=== PATIENT | female | born 1965 | race Caucasian/White ===

== ENCOUNTER 2017-10-25 10:47 | Day surgery (SDC) | payer BC, OTHER ==
[2017-10-20 10:51] LABS: HEMATOCRIT 36.3 % (36.0-47.0); MEAN CORPUSCULAR HEMOGLOBIN 32.1 pg (27.0-33.4); MEAN CORPUSCULAR HGB CONC 35.9 g/dL (32.0-36.0); MEAN CORPUSCULAR VOLUME 89 fl (80-97); PLATELET COUNT 197 10^3/uL (150-450); RED BLOOD COUNT 4.06 10^6/uL (3.72-5.28); RED CELL DISTRIBUTION WIDTH 12.9 % (11.5-14.0); WHITE BLOOD COUNT 8.7 10^3/uL (4.0-10.5)
[2017-10-20 11:24] LABS: ANION GAP 13 (5-19); BLOOD UREA NITROGEN 22 mg/dL (7-20); CALCIUM 9.3 mg/dL (8.4-10.2); CARBON DIOXIDE 25 mmol/L (22-30); CHLORIDE 105 mmol/L (98-107); GLUCOSE 96 mg/dL (75-110); POTASSIUM 4.4 mmol/L (3.6-5.0); SODIUM 142.7 mmol/L (137-145)
--- NOTE | 2017-10-20 14:34 | EKG REPORT ---
SEVERITY:- ABNORMAL ECG - SINUS RHYTHM LEFT VENTRICULAR HYPERTROPHY : Confirmed by: Vinicius Mccollum MD 20-Oct-2017 14:34:06
[~2017-10-25 10:47] MED LIST: CEFAZOLIN 1 GM/D5W RTU 1 GM/50 ML RTUPB IV PRN; GLYCOPYRROLATE INJ 0.4 MG/2 ML VIAL ONE; LACTATED RINGERS 1000 ML IV PRN; LIDOCAINE 0.5% INJ-PF (5 MG/ML) 50 ML SDV SUBCUT PRN; LIDOCAINE 2% INJ-PF (20 MG/ML) 2 ML AMPUL ONE; NEOSTIGMINE METHYLSULFATE 10 MG/10 ML VIAL ONE; ROCURONIUM BROMIDE INJ 50 MG/5 ML VIAL IV ONE; SUCCINYLCHOLINE CHLORIDE INJ 200 MG/10 ML VIAL ONE
[2017-10-25] MEDS ORDERED: BUPIVACAINE HCL 0.25 % INJ/PF (2.5 MG/1 ML) 30 ML VIAL ONE (12:28)
[2017-10-25] MEDS ORDERED: FAMOTIDINE INJ/PF 20 MG/2 ML SDV IV ONE (13:04)
[2017-10-25] MEDS ORDERED: SCOPOLAMINE HYDROBROMIDE 1.5 MG PATCH.TD72 ONE (13:04)
[2017-10-25] MEDS ORDERED: MIDAZOLAM 2 MG/2 ML INJ ONE ×2 (13:23→13:40)
[2017-10-25] MEDS ORDERED: FENTANYL CITRATE INJ/PF 100 MCG/2 ML AMPUL ONE (13:40)
[2017-10-25] MEDS ORDERED: PROPOFOL INJ 200 MG/20 ML VIAL IV ONE (13:40)
[2017-10-25] MEDS ORDERED: MEPERIDINE HCL/PF INJ 25 MG/1 ML DISP.SYRIN IV PRN (14:12)
[2017-10-25] MEDS ORDERED: FENTANYL CITRATE INJ/PF 100 MCG/2 ML AMPUL IV PRN ×3 (14:12)
[2017-10-25] MEDS ORDERED: DIPHENHYDRAMINE HCL 50 MG/ML VIAL IV PRN (14:12)
[2017-10-25] MEDS ORDERED: PROMETHAZINE HCL INJ 25 MG/1 ML VIAL IV PRN ×2 (14:12)
[2017-10-25] MEDS ORDERED: OXYCODONE-ACETAMINOPHEN 5-325 MG TABLET PO PRN ×3 (14:12→15:33)
--- NOTE | 2017-10-25 15:24 | Operative Report ---
Operative Report DATE OF SURGERY: 10/25/17 PREOPERATIVE DIAGNOSIS: Umbilical hernia, with incarceration POSTOPERATIVE DIAGNOSIS: Same with incarcerated omentum OPERATION: Laparoscopic repair of umbilical hernia with primary closure and reinforcement with Covidien 9 cm PArietex mesh in the intraperitoneal position SURGEON: CR PARKS SIMULATION DEVELOPER: EDOUARD EAST ANESTHESIA: GA TISSUE REMOVED OR ALTERED: None COMPLICATIONS: None ESTIMATED BLOOD LOSS: Scant INTRAOPERATIVE FINDINGS: See below PROCEDURE: She was taken to the preop holding area the main operating room where general anesthesia was induced. Abdomen was exposed, prepped and draped in sterile fashion ; instrumentation was set up for laparoscopic umbilical herniorrhaphy Surgical plan surgical timeout were conducted. Markings were made on the skin for 3 port laparoscopic hernia repair. Skin was anesthetized with quarter percent Marcaine. Stab wound was made in the left upper quadrant and a Veress needle inserted the peritoneal cavity. Pneumoperitoneum was established. The Veress needle was removed, 5 mm port was inserted in the peritoneal cavity and a 5 mm flexible viewing scope was inserted. There was no evidence of visceral or vascular injury. Under direct visualization 2 additional ports were placed one in the left lower quadrant and a another in the right mid field position. Findings were significant for an extensive volume of omentum incarcerated into the small umbilical hernia defect with a mushroom type configuration, dating the , incarcerated tissue. Hook cautery was used to release the bands around the opening of the fascial defect, and using a combination of blunt, traction, extracorporeal manipulation, and LigaSure, all of the omentum incarcerated in the hernia was reduced. Minimal bleeding from elements of omentum cauterized and handled with LigaSure. The hernia sac was left in situ. Affected the cavity and there was no mechanical bleeding. We now closed the fascial defect transversely with 2 #1 [id number] PDS sutures using the disposable suture passer. We now reinforced the closure using a 9 cm Covidien polypropylene mesh. It was brought onto the field after checking expiration date. Sutures were placed of 0 PDS at the 12, 6, 9 and 3: 00 positions. The mesh was moistened, rolled, brought through the anterior abdominal wall. It was unrolled and brought up to the anterior abdominal wall using the disposable suture passers and all stitches secured with knots in satisfactory position. We then brought on a sure tack stapler and secured to the mass at the intervening spaces with approximately 18 evelia. Conclusion photographs were taken. We checked the underlying omentum and it was in good shape and no mechanical bleeding At this point felt the operation was complete. Sponge and needle counts are correct. All ports removed under direct visualization, pneumoperitoneum evacuated, wounds closed with 3-0 Vicryl benzoin and Steri-Strips. Patient tolerated the procedure well, extubated, taken recovery in stable condition. The physician assistant reading teacher, Ms. Cruz, provided assistance during this case by: Assisting and port insertion, retracting tissue, instillation of local anesthesia and closure of skin incisions.
--- NOTE | 2017-10-25 15:29 | Discharge Summary ---
Discharge Summary (SDC) - Discharge Final Diagnosis: Umbilical hernia Date of Surgery: 10/25/17 Discharge Date: 10/25/17 Condition: Stable Treatment or Instructions: [facility] [address] [place] [id number] Discharge Instructions: Laparoscopic Surgery 1. General Information: a. DO NOT DRIVE a car or operate dangerous machinery for 3-4 days or while taking narcotic pain pills. b. DO NOT consume alcohol, tranquilizers, sleeping medications or any non- prescribed medications for 24 hours unless approved by your doctor or as long as taking narcotic prescription medications. c. DO NOT make important decisions or sign any important papers for the first 24 hours after surgery. d. When discharged home the same day of surgery have a responsible person with you for the first night. 2. Activity Restrictions: 8 weeks. a. NO heavy lifting, straining abdominal muscles, bending over a lot, yard work, house work, or sports for [address] for 3-4 8. c. It is fine to go for walks, up and down steps, ride in a car. d. Elevate your head when sleeping/resting. 3. Treatment: a. You may shower 24 hours after surgery, no baths or swimming for 2 weeks. Remove band-aids or dressings before shower but leave paper strips (steri-strips ) on the skin to fall off on their own. If still on at postoperative visit they will be removed then. b. Drainage of fluid or blood is not unusual from an incision. If occurs, you can clean with peroxide and cotton ball daily and cover with dry gauze until the wound seals. c. If a lot of bleeding occurs, you can hold pressure with a gauze or cloth over the site for 10 minutes and it will usually stop. If bleeding continues you will need to call for possible evaluation in office or emergency room. 4. Medications: a. ___Toradol_ may be taken for pain as needed, one every 6 hours. b. You should resume all normal medications unless a change is specified by your doctors. c. Antibiotic(s) if needed ( NONE) 5. Diet: Normal diet 6. The following may occur after laparoscopic surgery: a. Shoulder or upper back ache from retained gas that should resolve in 1-2 days b. Soreness and bruising at incision sites will resolve with time. c. Scrotal swelling (labia in women) and bruising is often seen after hernia surgery. d. Sore throat e. Fatigue may last days to weeks. f. Difficulty urinating may occur and may need to come into emergency room for urinary catheter placement. 7. Notify Physician If: a. Worsening or pain not improved with pain medication b. Persistent nausea and vomiting c. Fever above 101 d. Persistent bleeding or swelling at operative site e. Unable to urinate and uncomfortable bladder 6-8 hours after surgery 8..Follow Up Care: a. Schedule a follow up appointment with your doctor for 2 weeks. In the event of any postoperative problems or questions or you may call the office during business hours or the On-Call physician evenings and weekends at [facility]. [facility] I understand the instructions for my postoperative care as described above and a copy has been given to me. Patient/Significant Other Witness Date Prescriptions: Ketorolac Tromethamine [Toradol 10 mg Tablet] 10 mg PO Q6HP PRN #20 tablet PRN Reason: Referrals: CAIT JOHNSTON PA-C [Primary Care Provider] - Discharge Diet: As Tolerated Discharge Activity: No Lifting Over 10 Pounds, Walk Frequently Report the Following to Your Physician Immediately: Nausea, Vomiting, Fever over 101 Degrees, Redness, Drainage-Foul Smelling
[2017-10-25] MEDS ORDERED: PROMETHAZINE HCL INJ 25 MG/1 ML VIAL ONE (15:53)
[2017-10-25] MEDS ORDERED: METOCLOPRAMIDE HCL INJ/PF 10 MG/2 ML SDV ONE (15:56)
[2017-10-25] MEDS ORDERED: ACETAMINOPHEN 100 ML IV ONE (15:57)
[2017-10-25] MEDS ORDERED: KETOROLAC TROMETHAMINE INJ/PF 30 MG/1 ML SDV ONE (15:58)
[2017-10-25 19:45] VITALS: BP 143/63
== END 2017-10-25 19:40 | disposition home or self-care (01) ==
LOC: OROUT 10:47
PROVIDERS: ATTEND Surgery
PROC: 0WUF4JZ Supplement Abdominal Wall with Synthetic Substitute, Percutaneous Endoscopic Approach (ICD-10-PCS; principal; 2017-10-25 13:00)
DX: K42.0 Umbilical hernia with obstruction, without gangrene (principal); E78.00 Pure hypercholesterolemia, unspecified; E04.1 Nontoxic single thyroid nodule; D57.3 Sickle-cell trait; R01.1 Cardiac murmur, unspecified; Z88.8 Allergy status to other drugs, medicaments and biological substances; Z87.891 Personal history of nicotine dependence; Z79.82 Long term (current) use of aspirin; Z79.899 Other long term (current) drug therapy
CPT/HCPCS: 36415; 750; 80048; 81025; 82962; 85027; 93005; 93010; C1781; J0131; J0330; J0690; J1885; J2250; J2550; J2704; J2765; J3010; J3490; S0028

== ENCOUNTER 2018-07-06 09:20 | Day surgery (SDC) | payer OTHER ==
[~2018-07-06 09:20] MED LIST changes: -CEFAZOLIN 1 GM/D5W RTU 1 GM/50 ML RTUPB IV PRN; -GLYCOPYRROLATE INJ 0.4 MG/2 ML VIAL ONE; -LACTATED RINGERS 1000 ML IV PRN; -LIDOCAINE 0.5% INJ-PF (5 MG/ML) 50 ML SDV SUBCUT PRN; -LIDOCAINE 2% INJ-PF (20 MG/ML) 2 ML AMPUL ONE; -NEOSTIGMINE METHYLSULFATE 10 MG/10 ML VIAL ONE; +PROPOFOL INJ 200 MG/20 ML VIAL IV ONE; -ROCURONIUM BROMIDE INJ 50 MG/5 ML VIAL IV ONE; -SUCCINYLCHOLINE CHLORIDE INJ 200 MG/10 ML VIAL ONE
[2018-07-06] MEDS ORDERED: FENTANYL CITRATE INJ/PF 100 MCG/2 ML AMPUL IV PRN ×3 (11:54)
[2018-07-06] MEDS ORDERED: MEPERIDINE HCL/PF INJ 25 MG/1 ML DISP.SYRIN IV PRN (11:54)
[2018-07-06] MEDS ORDERED: DIPHENHYDRAMINE HCL 50 MG/ML VIAL IV PRN (11:54)
[2018-07-06] MEDS ORDERED: OXYCODONE-ACETAMINOPHEN 5-325 MG TABLET PO PRN ×2 (11:54)
[2018-07-06] MEDS ORDERED: PROMETHAZINE HCL INJ 25 MG/1 ML VIAL IV PRN ×2 (11:54)
--- NOTE | 2018-07-06 12:23 | Operative Report ---
Operative Report DATE OF SURGERY: 07/06/18 Operative Report: The risks, benefits and alternatives of the procedure including the risks of bleeding, perforation requiring surgery are explained to the patient in detail and informed consent is obtained. Patient is taken back to the operating room and placed in the left, lateral decubital position. Timeout was called. Propofol medication is administered. Rectal examination is done which did not reveal any masses, tears or fissures. An Olympus videoscope was introduced into the patient's rectum. The scope was then carefully advanced all the way to the cecum. The cecum was identified by the usual anatomical landmarks including the ileocecal valve as well as appendiceal office. Photodocumentation is obtained. The scope was then sequentially pulled back via the various segments of the colon including the ascending colon, hepatic flexure, transverse colon, splenic flexure, descending colon and finally to the rectosigmoid portions of the colon. Retroflexion maneuver is performed. PREOPERATIVE DIAGNOSIS: Colorectal cancer screening POSTOPERATIVE DIAGNOSIS: Large polyp/ulcerated mass noted at approximately 20 cm. Status post biopsy. Submucosal injection of Kalyn ink is performed. Dr. Singh was notified. Surgical consultation is needed for removal. OPERATION: Colonoscopy with submucosal injection. Colonoscopy with biopsy SURGEON: JAIRO MILTON ANESTHESIA: LMAC TISSUE REMOVED OR ALTERED: As noted above. COMPLICATIONS: None. ESTIMATED BLOOD LOSS: None. INTRAOPERATIVE FINDINGS: As noted above. PROCEDURE: Patient tolerated the procedure well. No immediate postprocedure complications are noted. Patient discharged in good condition. Discharge date 07/06/2018. Discharge diet: Regular. Discharge activity: Regular. We will wait on pathology. Surgical consultation to be made to [facility]. Patient is instructed to call the office or proceed to the emergency room should there be any further questions.
[2018-07-06 15:00] VITALS: BP 156/67
== END 2018-07-06 13:15 | disposition home or self-care (01) ==
LOC: OROUT 09:20
PROVIDERS: ATTEND Internal Medicine Gastroenterology
DX: Z12.11 Encounter for screening for malignant neoplasm of colon (principal); D12.5 Benign neoplasm of sigmoid colon; E78.00 Pure hypercholesterolemia, unspecified; E78.1 Pure hyperglyceridemia; E04.1 Nontoxic single thyroid nodule; Z79.899 Other long term (current) drug therapy; Z88.8 Allergy status to other drugs, medicaments and biological substances; Z80.8 Family history of malignant neoplasm of other organs or systems
CPT/HCPCS: 45380; 45381; 88305 ×2; J2704; 811

== ENCOUNTER 2019-01-03 05:31 | Inpatient (IN) | payer OTHER ==
--- NOTE | 2018-12-28 10:19 | RADIOLOGY REPORT (SQ) ---
EXAM DESCRIPTION: CHEST PA/LATERAL COMPLETED DATE/TIME: 12/28/2018 9:37 am REASON FOR STUDY: PRE-OP COMPARISON: None. EXAM PARAMETERS: NUMBER OF VIEWS: two views TECHNIQUE: Digital Frontal and Lateral radiographic views of the chest acquired. RADIATION DOSE: NA LIMITATIONS: none FINDINGS: LUNGS AND PLEURA: Minimal lingular scarring or atelectasis. Lungs are otherwise free of f ocal infiltrates. No pleural effusion or pneumothorax MEDIASTINUM AND HILAR STRUCTURES: No masses or contour abnormalities. HEART AND VASCULAR STRUCTURES: Heart normal size. No evidence for failure. BONES: No acute findings. HARDWARE: None in the chest. OTHER: No other significant finding. IMPRESSION: Minimal lingular scarring or atelectasis TECHNICAL DOCUMENTATION: JOB ID: [id number] [employer]- All Rights Reserved Reading location - IP/workstation name: [email or web address]
[2018-12-28 10:36] LABS: HEMATOCRIT 37.4 % (36.0-47.0); HEMOGLOBIN 13.2 g/dL (12.0-15.5); MEAN CORPUSCULAR HEMOGLOBIN 31.9 pg (27.0-33.4); MEAN CORPUSCULAR HGB CONC 35.2 g/dL (32.0-36.0); MEAN CORPUSCULAR VOLUME 91 fl (80-97); PLATELET COUNT 209 10^3/uL (150-450); RED BLOOD COUNT 4.13 10^6/uL (3.72-5.28); RED CELL DISTRIBUTION WIDTH 13.7 % (11.5-14.0); WHITE BLOOD COUNT 7.8 10^3/uL (4.0-10.5)
[2018-12-28 10:58] LABS: ANION GAP 10 (5-19); BLOOD UREA NITROGEN 20 mg/dL (7-20); CALCIUM 9.7 mg/dL (8.4-10.2); CARBON DIOXIDE 28 mmol/L (22-30); CHLORIDE 104 mmol/L (98-107); GLUCOSE 102 mg/dL (75-110); POTASSIUM 4.7 mmol/L (3.6-5.0); SODIUM 142.3 mmol/L (137-145)
--- NOTE | 2018-12-28 22:37 | EKG REPORT ---
SEVERITY:- ABNORMAL ECG - SINUS RHYTHM LEFT VENTRICULAR HYPERTROPHY : Confirmed by: Lucero Graves MD 28-Dec-2018 22:36:53
[~2019-01-03 05:31] MED LIST changes: +CEFOXITIN SODIUM 2 GM in DEXTROSE 5%-WATER 100 ML IV PRN; +IBUPROFEN 800 MG in NORMAL SALINE 250 ML IV PRN; +LACTATED RINGERS 1000 ML IV PRN; +LIDOCAINE 0.5% INJ-PF (5 MG/ML) 50 ML SDV SUBCUT PRN; -PROPOFOL INJ 200 MG/20 ML VIAL IV ONE; +SCOPOLAMINE HYDROBROMIDE 1.5 MG PATCH.TD72 TD PRN
[2019-01-03] MEDS ORDERED: SCOPOLAMINE HYDROBROMIDE 1.5 MG PATCH.TD72 ONE (05:38)
[2019-01-03] MEDS ORDERED: FAMOTIDINE INJ/PF 20 MG/2 ML SDV IV ONE ×2 (06:20→06:45)
[2019-01-03] MEDS ORDERED: HYDROMORPHONE HCL INJ/PF 2 MG/ML AMPULE ONE (07:05)
[2019-01-03] MEDS ORDERED: FENTANYL CITRATE INJ/PF 100 MCG/2 ML AMPUL ONE (07:05)
[2019-01-03] MEDS ORDERED: MIDAZOLAM 2 MG/2 ML INJ ONE (07:06)
[2019-01-03] MEDS ORDERED: PROPOFOL INJ 200 MG/20 ML VIAL IV ONE (07:06)
[2019-01-03] MEDS ORDERED: ACETAMINOPHEN 1,000 MG/100 ML RTUPB IV ONE (07:06)
[2019-01-03] MEDS ORDERED: PROMETHAZINE HCL INJ 25 MG/1 ML VIAL ONE (07:15)
[2019-01-03] MEDS ORDERED: BUPIVACAINE HCL 0.25 % INJ/PF (2.5 MG/1 ML) 30 ML VIAL ONE (08:06)
[2019-01-03] MEDS ORDERED: MORPHINE SULFATE 10 MG/ML INJ IV PRN (08:32)
[2019-01-03] MEDS ORDERED: FENTANYL CITRATE INJ/PF 100 MCG/2 ML AMPUL IV PRN ×3 (08:32)
[2019-01-03] MEDS ORDERED: MEPERIDINE HCL/PF INJ 25 MG/1 ML DISP.SYRIN IV PRN (08:32)
[2019-01-03] MEDS ORDERED: DIPHENHYDRAMINE HCL 50 MG/ML VIAL IV PRN (08:32)
[2019-01-03] MEDS ORDERED: PROMETHAZINE HCL INJ 25 MG/1 ML VIAL IV PRN (08:32)
[2019-01-03] MEDS ORDERED: EPHEDRINE SULFATE INJ 50 MG/1 ML AMPULE ONE (14:50)
[2019-01-03] MEDS: HYDROMORPHONE HCL INJ/PF 2 MG/ML AMPULE IV PRN ×2 (16:14→20:49)
[2019-01-03] MEDS: CEFOXITIN SODIUM 2 GM in DEXTROSE 5%-WATER 100 ML IV SCH (16:16)
[2019-01-03] MEDS ORDERED: DEXAMETHASONE SOD PHOSPHATE INJ 4 MG/1 ML VIAL ONE (19:18)
[2019-01-03] MEDS ORDERED: GLYCOPYRROLATE 1 MG/5 ML SYRINGE ONE (19:18)
[2019-01-03] MEDS ORDERED: NEOSTIGMINE METHYLSULFATE 10 MG/10 ML VIAL ONE (19:18)
[2019-01-03] MEDS ORDERED: SUCCINYLCHOLINE CHLORIDE INJ 200 MG/10 ML VIAL ONE (19:18)
[2019-01-03] MEDS ORDERED: ONDANSETRON HCL INJ/PF 4 MG/2 ML SDV ONE (19:18)
[2019-01-03] MEDS ORDERED: ROCURONIUM BROMIDE INJ 50 MG/5 ML VIAL IV ONE (19:18)
[2019-01-03] MEDS: ONDANSETRON HCL INJ/PF 4 MG/2 ML SDV IV PRN (20:01)
[2019-01-03] MEDS: FAMOTIDINE INJ/PF 20 MG/2 ML SDV IV SCH (22:03)
[2019-01-03] MEDS: KETOROLAC TROMETHAMINE INJ/PF 30 MG/1 ML SDV IV SCH (22:03)
[2019-01-04] MEDS: CEFOXITIN SODIUM 2 GM in DEXTROSE 5%-WATER 100 ML IV SCH (00:27)
[2019-01-04] MEDS: HYDROCODONE/ACETAMINOPHEN 10-325 MG TABLET PO PRN ×2 (00:27→18:09)
[2019-01-04] MEDS: ONDANSETRON HCL INJ/PF 4 MG/2 ML SDV IV PRN ×3 (00:27→19:17)
[2019-01-04] MEDS: HYDROMORPHONE HCL INJ/PF 2 MG/ML AMPULE IV PRN ×5 (02:13→19:58)
[2019-01-04 04:42] LABS: ABSOLUTE LYMPHOCYTES (AUTO) 1.2 10^3/uL (0.5-4.7); ABSOLUTE MONOCYTES (AUTO) 1.2 10^3/uL (0.1-1.4); BASOPHILS % (AUTO) 0.1 % (0-2); HEMATOCRIT 33.4 % (36.0-47.0); HEMOGLOBIN 11.8 g/dL (12.0-15.5); LYMPHOCYTES % (AUTO) 7.8 % (13-45); MEAN CORPUSCULAR HEMOGLOBIN 31.2 pg (27.0-33.4); MEAN CORPUSCULAR HGB CONC 35.2 g/dL (32.0-36.0); MEAN CORPUSCULAR VOLUME 89 fl (80-97); MONOCYTES % (AUTO) 7.6 % (3-13); PLATELET COUNT 226 10^3/uL (150-450); RED BLOOD COUNT 3.78 10^6/uL (3.72-5.28); RED CELL DISTRIBUTION WIDTH 13.6 % (11.5-14.0); SEGMENTED NEUTROPHILS % (AUTO) 84.5 % (42-78); TOTAL CELLS COUNTED % (AUTO) 100 %; WHITE BLOOD COUNT 15.3 10^3/uL (4.0-10.5)
[2019-01-04 05:03] LABS: ALANINE AMINOTRANSFERASE 34 U/L (9-52); ALBUMIN 3.3 g/dL (3.5-5.0); ALKALINE PHOSPHATASE 45 U/L (38-126); ANION GAP 9 (5-19); ASPARTATE AMINO TRANSFERASE 22 U/L (14-36); BILIRUBIN,DIRECT 0.2 mg/dL (0.0-0.4); BILIRUBIN,TOTAL 0.6 mg/dL (0.2-1.3); BLOOD UREA NITROGEN 15 mg/dL (7-20); CALCIUM 8.7 mg/dL (8.4-10.2); CARBON DIOXIDE 23 mmol/L (22-30); CHLORIDE 106 mmol/L (98-107); GLUCOSE 144 mg/dL (75-110); POTASSIUM 3.9 mmol/L (3.6-5.0); SODIUM 138.4 mmol/L (137-145); TOTAL PROTEIN 5.5 g/dL (6.3-8.2)
[2019-01-04] MEDS: PROMETHAZINE HCL INJ 25 MG/1 ML VIAL IV PRN ×2 (06:26→15:00)
[2019-01-04] MEDS: KETOROLAC TROMETHAMINE INJ/PF 30 MG/1 ML SDV IV SCH ×3 (06:27→23:19)
[2019-01-04] MEDS: RINGERS SOLUTION,LACTATED 1,000 ML IV PRN ×2 (08:01→18:09)
[2019-01-04] MEDS: ENOXAPARIN SODIUM INJ 40 MG/0.4 ML DISP.SYRIN SUBCUT SCH (09:27)
[2019-01-04] MEDS: FAMOTIDINE INJ/PF 20 MG/2 ML SDV IV SCH ×2 (09:27→23:20)
--- NOTE | 2019-01-04 16:39 | PDOC PROGRESS REPORT ---
Subjective Progress Note for:: 01/04/19 Reason For Visit: LARGE ADENOMA,SUSPICIOUS FOR COLON CANCER, Physical Exam Vital Signs: Temp Pulse Resp BP Pulse Ox 99.1 F 85 19 137/43 H 96 01/04/19 15:55 01/04/19 15:55 01/04/19 15:55 01/04/19 15:55 01/04/19 15:55 Intake & Output 01/03/19 01/04/19 01/05/19 06:59 06:59 06:59 Intake Total 0 5250 900 Output Total 3520 870 Balance 0 1730 30 Weight 98.1 kg Results Laboratory Results: 01/04/19 04:24 01/04/19 04:24 01/04/19 01/04/19 04:24 04:24 WBC 15.3 H RBC 3.78 Hgb 11.8 L Hct 33.4 L MCV 89 MCH 31.2 MCHC 35.2 RDW 13.6 Plt Count 226 Seg Neutrophils % 84.5 H Lymphocytes % 7.8 L Monocytes % 7.6 Eosinophils % 0.0 Basophils % 0.1 Absolute Neutrophils 13.0 H Absolute Lymphocytes 1.2 Absolute Monocytes 1.2 Absolute Eosinophils 0.0 Absolute Basophils 0.0 Sodium 138.4 Potassium 3.9 Chloride 106 Carbon Dioxide 23 Anion Gap 9 BUN 15 Creatinine 0.75 Est GFR ( Amer) > 60 Est GFR (Non-Af Amer) > 60 Glucose 144 H Calcium 8.7 Total Bilirubin 0.6 AST 22 ALT 34 Alkaline Phosphatase 45 Total Protein 5.5 L Albumin 3.3 L Impressions: Chest X-Ray 12/28/18 09:32 IMPRESSION: Minimal lingular scarring or atelectasis Assessment & Plan - Diagnosis (1) Colon neoplasm Is this a current diagnosis for this admission?: Yes - Plan Summary Plan Summary: This is a 53-year-old female status post laparoscopic left hemicolectomy with colorectal anastomosis and diverting ileostomy. The patient is doing well today. Her pain is controlled. She does report some nausea. Her left lower quadrant ileostomy is pink, but not productive. She denies fevers or chills. Aggressive pulmonary toilet. Continue Paz for today, for strict urine output. Out of bed today. Awaiting return of bowel function. Serosanguineous drainage from GIOVANY drain.
[2019-01-05] MEDS: RINGERS SOLUTION,LACTATED 1,000 ML IV PRN ×2 (04:15→14:41)
[2019-01-05 05:02] LABS: ABSOLUTE MONOCYTES (AUTO) 1.3 10^3/uL (0.1-1.4); ABSOLUTE NEUT (AUTO) 9.4 10^3/uL (1.7-8.2); BASOPHILS % (AUTO) 0.3 % (0-2); EOSINOPHILS % (AUTO) 0.2 % (0-6); HEMATOCRIT 25.7 % (36.0-47.0); LYMPHOCYTES % (AUTO) 21.8 % (13-45); MEAN CORPUSCULAR HEMOGLOBIN 31.6 pg (27.0-33.4); MEAN CORPUSCULAR HGB CONC 34.8 g/dL (32.0-36.0); MEAN CORPUSCULAR VOLUME 91 fl (80-97); MONOCYTES % (AUTO) 9.3 % (3-13); PLATELET COUNT 237 10^3/uL (150-450); RED BLOOD COUNT 2.83 10^6/uL (3.72-5.28); RED CELL DISTRIBUTION WIDTH 13.4 % (11.5-14.0); SEGMENTED NEUTROPHILS % (AUTO) 68.4 % (42-78); TOTAL CELLS COUNTED % (AUTO) 100 %; WHITE BLOOD COUNT 13.8 10^3/uL (4.0-10.5)
[2019-01-05 05:05] LABS: HEMOGLOBIN 8.9 g/dL (12.0-15.5)
[2019-01-05 05:17] LABS: ALANINE AMINOTRANSFERASE 28 U/L (9-52); ALBUMIN 2.9 g/dL (3.5-5.0); ALKALINE PHOSPHATASE 39 U/L (38-126); ANION GAP 7 (5-19); ASPARTATE AMINO TRANSFERASE 22 U/L (14-36); BILIRUBIN,DIRECT 0.2 mg/dL (0.0-0.4); BILIRUBIN,TOTAL 0.5 mg/dL (0.2-1.3); BLOOD UREA NITROGEN 24 mg/dL (7-20); CALCIUM 8.6 mg/dL (8.4-10.2); CARBON DIOXIDE 26 mmol/L (22-30); CHLORIDE 105 mmol/L (98-107); GLUCOSE 117 mg/dL (75-110); POTASSIUM 4.2 mmol/L (3.6-5.0); SODIUM 138.4 mmol/L (137-145); TOTAL PROTEIN 5.2 g/dL (6.3-8.2)
[2019-01-05] MEDS: KETOROLAC TROMETHAMINE INJ/PF 30 MG/1 ML SDV IV SCH ×3 (05:38→21:29)
[2019-01-05] MEDS: FAMOTIDINE INJ/PF 20 MG/2 ML SDV IV SCH ×2 (09:54→21:29)
[2019-01-05] MEDS: ENOXAPARIN SODIUM INJ 40 MG/0.4 ML DISP.SYRIN SUBCUT SCH (09:55)
[2019-01-05] MEDS: HYDROCODONE/ACETAMINOPHEN 10-325 MG TABLET PO PRN (09:59)
[2019-01-05] MEDS: HYDROMORPHONE HCL INJ/PF 2 MG/ML AMPULE IV PRN (11:17)
--- NOTE | 2019-01-05 12:22 | PDOC PROGRESS REPORT ---
Subjective Progress Note for:: 01/05/19 Reason For Visit: LARGE ADENOMA,SUSPICIOUS FOR COLON CANCER, Physical Exam Vital Signs: Temp Pulse Resp BP Pulse Ox 98.3 F 109 H 19 135/47 H 99 01/05/19 11:17 01/05/19 11:17 01/05/19 11:17 01/05/19 11:17 01/05/19 11:17 Intake & Output 01/04/19 01/05/19 01/06/19 06:59 06:59 06:59 Intake Total 5250 3300 Output Total 3520 1390 Balance 1730 1910 Weight 98.1 kg 97.9 kg Results Laboratory Results: 01/05/19 03:54 01/05/19 03:54 01/05/19 01/05/19 03:54 03:54 WBC 13.8 H RBC 2.83 L Hgb 8.9 L D Hct 25.7 L MCV 91 MCH 31.6 MCHC 34.8 RDW 13.4 Plt Count 237 Seg Neutrophils % 68.4 Lymphocytes % 21.8 Monocytes % 9.3 Eosinophils % 0.2 Basophils % 0.3 Absolute Neutrophils 9.4 H Absolute Lymphocytes 3.0 Absolute Monocytes 1.3 Absolute Eosinophils 0.0 Absolute Basophils 0.0 Sodium 138.4 Potassium 4.2 Chloride 105 Carbon Dioxide 26 Anion Gap 7 BUN 24 H Creatinine 1.06 Est GFR ( Amer) > 60 Est GFR (Non-Af Amer) 55 L Glucose 117 H Calcium 8.6 Total Bilirubin 0.5 AST 22 ALT 28 Alkaline Phosphatase 39 Total Protein 5.2 L Albumin 2.9 L Impressions: Chest X-Ray 12/28/18 09:32 IMPRESSION: Minimal lingular scarring or atelectasis Assessment & Plan - Diagnosis (1) Colon neoplasm Is this a current diagnosis for this admission?: Yes - Plan Summary Plan Summary: This is a 53-year-old female status post laparoscopic left hemicolectomy with colorectal anastomosis and diverting ileostomy. The patient is doing well today. Her pain is controlled. She does report some nausea. Her left lower quadrant ileostomy is pink, and productiveof a small amount of bilious output. She denies fevers or chills. Aggressive pulmonary toilet. discontinue Paz today. Out of bed/ambulate in halls. Awaiting normal bowel function. Serosanguineous drainage from GIOVANY drain. OK to shower.
--- NOTE | 2019-01-05 14:08 | Operative Report ---
Nonrecallable Operative Report DATE OF SURGERY: 01/03/19 PREOPERATIVE DIAGNOSIS: Large polyp of the sigmoid colon, suspicious for cancer, not amenable to endoscopic resection POSTOPERATIVE DIAGNOSIS: Same as above OPERATION: 1. Laparoscopic left hemicolectomy. 2. Laparoscopic takedown of the splenic flexure. 3. Flexible sigmoidoscopy. 4. Diverting ileostomy SURGEON: ALANA NIELSON 1ST [employer] SPECIALIST: LEXI WASSERMAN ANESTHESIA: GA TISSUE REMOVED OR ALTERED: left hemicolectomy with sigmoid colon and portion of rectum COMPLICATIONS: 29 EEA stapler not available. 33 stapler used in end to side fashion, requiring oversewing. ESTIMATED BLOOD LOSS: 400cc PROCEDURE: Drains/implants: 15 Macanese round Deacon drain in the pelvis. Procedure in detail: After informed consent was obtained, the patient was brought to the operating room and laid in the low lithotomy position. The area of the abdomen was prepped and draped in a normal sterile fashion. A supraumbilical incision was created with a 15 blade scalpel. Dissection was carried through the subcutaneous tissue using sharp and blunt means. The linea alba fascia was incised sharply, the abdomen was entered sharply. The balloon trocar was inserted, and pneumoperitoneum was achieved. A right lower quadrant 12 mm trocar was placed under direct laparoscopic visualization, as well as a suprapubic 5 mm trocar and a left upper quadrant 5 mm trocar. Graspers were placed into the ports. The patient was placed into the Trendelenburg position. Attention was turned to the sigmoid colon. The sigmoid colon was retracted anteriorly. Dissection was begun in the mesentery at the sacral promontory. Harmonic scalpel was used to score the mesentery. A medial to lateral dissection was then undertaken. The mesentery was swept anteriorly and the ureter was identified on the left. Once the ureter was identified, it was spared along its course. Dissection was taken cranially. The inferior mesenteric artery was then identified, along with the superior rectal artery. The artery was ligated and divided using the [place] 60 stapler with vascular loads. The dissection was continued cranially elevating the mesentery away from the retroperitoneum. Again, the ureter was identified and spared along this maneuver. The inferior mesenteric vein was identified. It was ligated and divided using the harmonic scalpel. Once the splenic flexure was reached the left colon was rotated medially, and the white line of Toldt was divided. Next, the patient was placed in reverse Trendelenburg and the splenic flexure was freed. The omentum was elevated anteriorly. The omentum was freed from the transverse colon using the harmonic scalpel. This was done the entire length of the transverse colon. Next the splenic flexure was mobilized beginning distal and laterally. The splenocolic ligament was taken down using the harmonic scalpel. The transverse colon was then rotated medially and inferiorly. Once this maneuver was completed, attention was returned to the pelvis. The sigmoid colon was elevated. The ureter was again identified. The sigmoid colon was divided at the rectosigmoid junction. Next, a lower midline incision was created within the bounds of a previous scar in order to extract the specimen and create an anastomosis. The left colon was exteriorized. The tumor appeared to be present at the distal end of the resection margin. This would require further resection of the rectum for adequate margin. Retractors were placed on the patient. The rectum was elevated. The mesorectum was divided using Bovie electrocautery. The resection margin was taken 5 cm distal to the tumor. This required opening of the peritoneal reflection anteriorly. The rectum was then divided using the contour stapling device. Next, the distal transverse colon was divided using the [place] stapler. This was done at a point found to be well vascularized, as identified via Doppler signal. The specimen was then sent to pathology. Specimen A was left hemicolectomy. Specimen B was extra portion of rectum, with the distal aspect marked with suture. Next, attention was turned to creation of the anastomosis. Ideally, a 29 EEA stapler would create a sufficient end-to-end anastomosis. However, due to a national recall no 29 EEA staplers are available for use. Secondary to this, a 33 stapler was chosen to create an anastomosis. The distal transverse colon was opened, however it would not accept the 33 EEA anvil readily. The colon was dilated with a finger, and the anvil was inserted sideways. This would help to facilitate an end of rectum to side of colon anastomosis. Next, the 33 EEA stapler was inserted into the rectum. It passed up the rectum easily. The spike was deployed through the previous staple line. The anvil was to the stapler. The stapler was closed and fired. The end to side stapled anastomosis was then created. The stapler was removed. 2 complete doughnut rings were found within the stapler. These were sent for pathology as well. Once this was completed, attention was turned to the flexible sigmoidoscopy. The transverse colon was clamped and the flexible sigmoidoscopy was performed. The flexible sigmoidoscope was inserted into the anus by ri. The pelvis was filled with fluid. Gas insufflation was performed. Gas was found to escape through the anus. Internally the anastomosis appeared intact, however there were bubbles within the abdominal cavity, confirming that the stapled anastomosis was not airtight. Secondary to this, I scrubbed back into the case and performed circumferential Lembert sutures of the colorectal anastomosis with 3-0 Vicryl suture. Once this was completed, it was felt prudent to provide the patient with a diverting ileostomy. This was due to the presence of a rectal anastomosis, as well as the leakage of air with flexible sigmoidoscopy. The right lower quadrant 12 mm trocar was removed. This site was used to bring out the diverting ileostomy. An appropriate section of terminal ileum was identified. It was brought through the fascia. Next, a 15 Macanese round Deacon drain was placed through the abdominal wall through the left upper quadrant 5 mm trocar site. It was placed into the pelvis, around the anastomosis. It was sutured in place using 2-0 nylon suture. Next attention was turned to closure of the abdominal wall. The abdominal wall was closed using #1 Prolene suture in simple running fashion. Near the umbilicus, there was an old hernia mesh present. This area was closed using an additional #1 Prolene suture in [id number] fashion. The skin was then closed with skin evelia. Attention was then turned to maturing of the ileostomy. The ileostomy was opened, and matured in Ashlie fashion. This was done using 3-0 Vicryl suture. An ostomy appliance was placed, and the procedure was then concluded. All sponge, instrument, and needle counts were correct x2. Condition: Stable. Lexi Wasserman PA-C was scrubbed and present the entirety the procedure. She assisted with all portions of the procedure including placement of the trochars, manipulation of the colon, division of the colon, opening of the abdomen, creation of the anastomosis, placement of the drain, closure of the fascia, maturing of the ileostomy, and closure of the skin.
[2019-01-06] MEDS: HYDROCODONE/ACETAMINOPHEN 10-325 MG TABLET PO PRN ×2 (00:46→10:21)
[2019-01-06] MEDS: RINGERS SOLUTION,LACTATED 1,000 ML IV PRN (00:48)
[2019-01-06] MEDS: HYDROMORPHONE HCL INJ/PF 2 MG/ML AMPULE IV PRN (02:40)
[2019-01-06] MEDS: KETOROLAC TROMETHAMINE INJ/PF 30 MG/1 ML SDV IV SCH (06:08)
[2019-01-06] MEDS: FAMOTIDINE INJ/PF 20 MG/2 ML SDV IV SCH (10:09)
[2019-01-06] MEDS: ENOXAPARIN SODIUM INJ 40 MG/0.4 ML DISP.SYRIN SUBCUT SCH (10:22)
--- NOTE | 2019-01-06 10:35 | PDOC PROGRESS REPORT ---
Subjective Progress Note for:: 01/06/19 Reason For Visit: LARGE ADENOMA,SUSPICIOUS FOR COLON CANCER, Physical Exam Vital Signs: Temp Pulse Resp BP Pulse Ox 98.2 F 92 16 125/49 L 98 01/06/19 07:58 01/06/19 07:58 01/06/19 07:58 01/06/19 07:58 01/06/19 07:58 Intake & Output 01/05/19 01/06/19 01/07/19 06:59 06:59 06:59 Intake Total 3300 2400 950 Output Total 1390 1805 Balance 1910 595 950 Weight 97.9 kg 101.9 kg Results Laboratory Results: 01/05/19 03:54 01/05/19 03:54 Impressions: Chest X-Ray 12/28/18 09:32 IMPRESSION: Minimal lingular scarring or atelectasis Assessment & Plan - Diagnosis (1) Colon neoplasm Is this a current diagnosis for this admission?: Yes - Plan Summary Plan Summary: This is a 53-year-old female status post laparoscopic left hemicolectomy with colorectal anastomosis and diverting ileostomy. The patient is doing well today. Her pain is controlled. She denies nausea. Her left lower quadrant ileostomy is pink, and productive. She denies fevers or chills. Aggressive pulmonary toilet. Out of bed/ambulate in halls. Bowel function is present: advance diet. Serosanguineous drainage from GIOVANY drain. OK to shower.
[2019-01-06] MEDS: IBUPROFEN 800 MG TABLET PO SCH ×2 (12:44→17:05)
[2019-01-06] MEDS: FAMOTIDINE 20 MG TABLET PO SCH (22:43)
[2019-01-07] MEDS: HYDROCODONE/ACETAMINOPHEN 10-325 MG TABLET PO PRN ×2 (00:36→06:10)
[2019-01-07 06:17] LABS: ABSOLUTE EOSINOPHILS # (AUTO) 0.2 10^3/uL (0.0-0.6); ABSOLUTE MONOCYTES (AUTO) 0.8 10^3/uL (0.1-1.4); BASOPHILS % (AUTO) 0.3 % (0-2); HEMATOCRIT 21.3 % (36.0-47.0); LYMPHOCYTES % (AUTO) 20.4 % (13-45); MEAN CORPUSCULAR HEMOGLOBIN 32.2 pg (27.0-33.4); MEAN CORPUSCULAR HGB CONC 35.2 g/dL (32.0-36.0); MEAN CORPUSCULAR VOLUME 92 fl (80-97); MONOCYTES % (AUTO) 7.6 % (3-13); PLATELET COUNT 211 10^3/uL (150-450); RED BLOOD COUNT 2.33 10^6/uL (3.72-5.28); RED CELL DISTRIBUTION WIDTH 13.4 % (11.5-14.0); SEGMENTED NEUTROPHILS % (AUTO) 69.7 % (42-78); TOTAL CELLS COUNTED % (AUTO) 100 %
[2019-01-07 06:22] LABS: HEMOGLOBIN 7.5 g/dL (12.0-15.5)
--- NOTE | 2019-01-07 06:27 | PDOC PROGRESS REPORT ---
Subjective Progress Note for:: 01/07/19 Reason For Visit: LARGE ADENOMA,SUSPICIOUS FOR COLON CANCER, Physical Exam Vital Signs: Temp Pulse Resp BP Pulse Ox 98.6 F 92 14 138/56 H 99 01/06/19 23:56 01/06/19 23:56 01/06/19 23:56 01/06/19 23:56 01/06/19 23:56 Intake & Output 01/05/19 01/06/19 01/07/19 06:59 06:59 06:59 Intake Total 3300 2400 1750 Output Total 1390 1805 1180 Balance 1910 595 570 Weight 97.9 kg 101.9 kg 101.5 kg Results Laboratory Results: 01/07/19 05:54 01/07/19 05:54 WBC 10.0 RBC 2.33 L Hgb 7.5 L Hct 21.3 L MCV 92 MCH 32.2 MCHC 35.2 RDW 13.4 Plt Count 211 Seg Neutrophils % 69.7 Lymphocytes % 20.4 Monocytes % 7.6 Eosinophils % 2.0 Basophils % 0.3 Absolute Neutrophils 7.0 Absolute Lymphocytes 2.0 Absolute Monocytes 0.8 Absolute Eosinophils 0.2 Absolute Basophils 0.0 Impressions: Chest X-Ray 12/28/18 09:32 IMPRESSION: Minimal lingular scarring or atelectasis Assessment & Plan - Diagnosis (1) Colon neoplasm Is this a current diagnosis for this admission?: Yes - Plan Summary Plan Summary: This is a 53-year-old female status post laparoscopic left hemicolectomy with colorectal anastomosis and diverting ileostomy. The patient is doing well today. Her pain is controlled. She denies nausea. Her left lower quadrant ileostomy is pink, and productive. She denies fevers or chills. Aggressive pulmonary toilet. Out of bed/ambulate in halls. Bowel function is present: tolerating regular diet. Serosanguineous drainage from GIOVANY drain. OK to shower. ABLA: likely from surgery with equillibration afterward. Will monitor. D/c love nox. Ostomy training. Discharge planning.
[2019-01-07 06:30] LABS: ANION GAP 8 (5-19); BLOOD UREA NITROGEN 16 mg/dL (7-20); CALCIUM 8.3 mg/dL (8.4-10.2); CARBON DIOXIDE 27 mmol/L (22-30); CHLORIDE 105 mmol/L (98-107); GLUCOSE 111 mg/dL (75-110); POTASSIUM 3.6 mmol/L (3.6-5.0); SODIUM 139.9 mmol/L (137-145)
[2019-01-07] MEDS: IBUPROFEN 800 MG TABLET PO SCH ×3 (07:33→16:33)
[2019-01-07] MEDS: FAMOTIDINE 20 MG TABLET PO SCH ×2 (09:20→21:12)
[2019-01-08] MEDS: HYDROCODONE/ACETAMINOPHEN 10-325 MG TABLET PO PRN ×4 (00:17→20:15)
[2019-01-08] MEDS: IBUPROFEN 800 MG TABLET PO SCH ×3 (08:00→17:08)
[2019-01-08] MEDS: FAMOTIDINE 20 MG TABLET PO SCH ×2 (09:42→23:24)
[2019-01-08] MEDS: ONDANSETRON HCL INJ/PF 4 MG/2 ML SDV IV PRN (09:57)
[2019-01-08] MEDS ORDERED: ONDANSETRON HCL INJ/PF 4 MG/2 ML SDV IV PRN (10:08)
[2019-01-08] MEDS: ONDANSETRON 4 MG TAB.RAPDIS PO PRN (14:54)
--- NOTE | 2019-01-08 18:40 | PDOC PROGRESS REPORT ---
Subjective Reason For Visit: LARGE ADENOMA,SUSPICIOUS FOR COLON CANCER, Physical Exam Vital Signs: Temp Pulse Resp BP Pulse Ox 98.3 F 87 16 127/68 H 100 01/08/19 16:00 01/08/19 16:00 01/08/19 16:00 01/08/19 16:00 01/08/19 16:00 Intake & Output 01/07/19 01/08/19 01/09/19 06:59 06:59 06:59 Intake Total 1750 1440 1000 Output Total 1180 2420 910 Balance 570 -980 90 Weight 101.5 kg 101.5 kg Results Laboratory Results: 01/07/19 05:54 01/07/19 05:54 Impressions: Chest X-Ray 12/28/18 09:32 IMPRESSION: Minimal lingular scarring or atelectasis Assessment & Plan - Diagnosis (1) Colon neoplasm Is this a current diagnosis for this admission?: Yes - Plan Summary Plan Summary: This is a 53-year-old female status post laparoscopic left hemicolectomy with colorectal anastomosis and diverting ileostomy. The patient is doing well today. Her pain is controlled. She denies nausea. Her left lower quadrant ileostomy is pink, and productive. She denies fevers or chills. Aggressive pulmonary toilet. Out of bed/ambulate in halls. Bowel function is present: tolerating regular diet. Serosanguineous drainage from GIOVANY drain. OK to shower. ABLA: likely from surgery with equillibration afterward. Will monitor. Lovenox discontinued. Repeat cbc tomorrow. Ostomy training. Discharge planning.
[2019-01-09] MEDS: HYDROCODONE/ACETAMINOPHEN 10-325 MG TABLET PO PRN (04:36)
[2019-01-09 07:48] LABS: HEMATOCRIT 20.9 % (36.0-47.0); MEAN CORPUSCULAR HEMOGLOBIN 31.9 pg (27.0-33.4); MEAN CORPUSCULAR HGB CONC 35.1 g/dL (32.0-36.0); MEAN CORPUSCULAR VOLUME 91 fl (80-97); PLATELET COUNT 222 10^3/uL (150-450); RED CELL DISTRIBUTION WIDTH 13.4 % (11.5-14.0); WHITE BLOOD COUNT 7.1 10^3/uL (4.0-10.5)
[2019-01-09 07:52] LABS: HEMOGLOBIN 7.3 g/dL (12.0-15.5)
[2019-01-09] MEDS: ONDANSETRON 4 MG TAB.RAPDIS PO PRN ×2 (09:50→14:17)
[2019-01-09] MEDS: FAMOTIDINE 20 MG TABLET PO SCH (09:51)
[2019-01-09] MEDS: IBUPROFEN 800 MG TABLET PO SCH ×2 (09:51→12:44)
--- NOTE | 2019-01-09 17:11 | PDOC DISCHARGE SUMMARY ---
General - Admit/Disc Date/PCP Admission Date/Primary Care Provider: 01/03/19 05:31 CAIT JOHNSOTN PA-C Discharge Date: 01/09/19 - Discharge Diagnosis (1) Colon neoplasm Is this a current diagnosis for this admission?: Yes - Additional Information Resuscitation Status: Full Code Discharge Diet: As Tolerated Discharge Activity: Balance Activity w/Rest, No Lifting Over 10 Pounds Home Medications: Celecoxib 100 mg PO Q12 01/03/19 Fenofibrate Nanocrystallized [Tricor 145 mg Tablet] 145 mg PO QPM 01/03/19 History of Present Illness History of Present Illness: LUISA NEWTON is a 53 year old female admitted with a mass in the sigmoid colon, concerning for cancer. The patient underwent laparoscopic left hemicolectomy. She was then taken to the floor in stable condition. Hospital Course Hospital Course: Patient was taken to the floor in stable condition after her procedure was performed. The patient did well. She began ambulating, and her pulmonary toilet was good. Her ostomy began producing bilious fluid. She was started on a diet. The patient was maintained on Lovenox for DVT prophylaxis, however she began having bleeding around her GIOVANY drain. Her Lovenox was stopped. Her hemoglobin was low, however remained stable throughout her hospital stay. By 01/09/2019 the patient was ambulating, tolerating a diet, her ostomy was functional, and it was felt that she had reached maximal hospital benefit. At this time she is fit for discharge. Physical Exam Vital Signs: Temp Pulse Resp BP Pulse Ox 98.3 F 80 16 142/56 H 96 01/09/19 11:21 01/09/19 11:21 01/09/19 11:21 01/09/19 11:21 01/09/19 11:21 Intake & Output 01/08/19 01/09/19 01/10/19 06:59 06:59 06:59 Intake Total 1440 1680 Output Total 2420 1055 120 Balance -980 625 -120 Weight 101.5 kg 101.7 kg Results Laboratory Results: 01/09/19 06:10 01/07/19 05:54 01/09/19 06:10 WBC 7.1 RBC 2.30 L Hgb 7.3 L Hct 20.9 L MCV 91 MCH 31.9 MCHC 35.1 RDW 13.4 Plt Count 222 Impressions: Chest X-Ray 12/28/18 09:32 IMPRESSION: Minimal lingular scarring or atelectasis Qualifiers - * PATIENT BEING DISCHARGED WITH ANY OF THE FOLLOWING DIAGNOSIS: No Acute Heart Failure Is this a Heart Failure Patient?: No Plan Discharge Plan: Discharge home. Diet as tolerated. Activity: No lifting greater than 10 pounds x 6 weeks. Follow-up with me in 7 to 10 days. Monitor GIOVANY drain output and record it daily. Cerro 10/325 mg p.o. every 6 hours as needed for pain. Resume home Celebrex. Zofran 4 mg p.o. every 4 hours PRN for nausea. Okay to shower. No tub baths or swimming pools x2 weeks. Home health for ostomy care. Time Spent: Less than 30 Minutes
[2019-01-09 18:15] VITALS: BP 150/60
== END 2019-01-09 18:59 | disposition home health service (06) | DRG 331 ==
LOC: INOR 05:31 → 5 15:45
PROVIDERS: ADMIT Surgery; ATTEND Surgery
PROC: 0D1B4Z4 Bypass Ileum to Cutaneous, Percutaneous Endoscopic Approach (ICD-10-PCS; 2019-01-03)
PROC: 0DBP4ZZ Excision of Rectum, Percutaneous Endoscopic Approach (ICD-10-PCS; 2019-01-03)
PROC: 0DJD8ZZ Inspection of Lower Intestinal Tract, Via Natural or Artificial Opening Endoscopic (ICD-10-PCS; 2019-01-03)
PROC: 0DTG4ZZ Resection of Left Large Intestine, Percutaneous Endoscopic Approach (ICD-10-PCS; principal; 2019-01-03 07:30)
DX: D12.7 Benign neoplasm of rectosigmoid junction (principal); E78.00 Pure hypercholesterolemia, unspecified; K42.9 Umbilical hernia without obstruction or gangrene; E04.1 Nontoxic single thyroid nodule; E66.9 Obesity, unspecified; F41.9 Anxiety disorder, unspecified; F17.200 Nicotine dependence, unspecified, uncomplicated; Z88.8 Allergy status to other drugs, medicaments and biological substances; Z86.19 Personal history of other infectious and parasitic diseases; Z87.19 Personal history of other diseases of the digestive system; Z80.49 Family history of malignant neoplasm of other genital organs; Z80.8 Family history of malignant neoplasm of other organs or systems
CPT/HCPCS: 36415; 71046; 790; 80048; 80053; 81025; 82378; 85025; 85027; 86850; 86870; 86900; 86901; 86902; 88307; 88309; 93005; 93010; 94799; J0131; J0330; J0694; J1100; J1170; J1650; J1741; J1885; J2250; J2405; J2550; J2704; J2710; J3010; J3490; J7050; J7060; J7120; S0028; S0119

== ENCOUNTER → 2019-01-30 | Outpatient (CLI) | payer OTHER ==
--- NOTE | 2019-01-30 10:20 | RADIOLOGY REPORT (SQ) ---
EXAM DESCRIPTION: CT CHEST WITH COMPLETED DATE/TIME: 01/30/2019 8:56 am REASON FOR STUDY: MALIGNANT NEOPLASM OF SIGMOID COLON C18.7 MALIGNANT NEOPLASM OF SIGMOID COLON COMPARISON: None. TECHNIQUE: CT scan of the chest performed using helical scanning technique with dynamic intravenous contrast injection. Images reviewed with lung, soft tissue and bone windows. Reconstructed coronal and sagittal MPR and MIP images reviewed. All images stored on PACS. All CT scanners at this facility use dose modulation, iterative reconstruction, and/or weight based d osing when appropriate to reduce radiation dose to as low as reasonably achievable (ALARA). [facility]: Dose Right [facility]: CareDose [facility]: Dose Right [facility]: Teradose 4D [facility]: [employer] CONTRAST TYPE AND DOSE: See separate report same date. RENAL FUNCTION: GFR > 60. RADIATION DOSE: . LIMITATIONS: None. FINDINGS: LUNGS AND PLEURA: No opacities, nodules, masses. No pneumothorax. No effusions. HILAR AND MEDIASTINAL STRUCTURES: No identified masses or abnormal nodes. HEART AND VASCULAR STRUCTURES: No aneurysm or dissection. No central pulmonary emboli. No pericardi al effusion. HARDWARE: None in the chest. UPPER ABDOMEN: See separate report of the CT of the abdomen. THYROID AND OTHER SOFT TISSUES: No masses. No adenopathy. BONES: No significant finding. OTHER: No other significant finding. IMPRESSION: No evidence of metastatic disease. TECHNICAL DOCUMENTATION: JOB ID: [id number] Quality ID # 436: Final reports with documentation of one or more dose reduction techniques (e.g., Au tomated exposure control, adjustment of the mA and/or kV according to patient size, use of iterative reconstruction technique) 2010 [employer]- All Rights Reserved Reading location - IP/workstation name: [email or web address]
--- NOTE | 2019-01-30 11:53 | RADIOLOGY REPORT (SQ) ---
EXAM DESCRIPTION: CT ABD/PELVIS WITH IV ONLY COMPLETED DATE/TIME: 01/30/2019 8:56 am REASON FOR STUDY: MALIGNANT NEOPLASM OF SIGMOID COLON C18.7 MALIGNANT NEOPLASM OF SIGMOID COLON COMPARISON: None. TECHNIQUE: CT scan of the abdomen and pelvis performed using helical scanning technique with dynamic intravenous contrast injection. No oral contrast. Images reviewed with lung, soft tissue, and bone windows. Reconstructed coronal and sagittal MPR images reviewed. Delayed images for evaluation of the urinary system also acquired. All images stored on PACS. All CT scanners at this facility use dose modulation, iterative reconstruction, and/or weight based d osing when appropriate to reduce radiation dose to as low as reasonably achievable (ALARA). [facility]: Dose Right [facility]: CareDose [facility]: Dose Right [facility]: Teradose 4D [facility]: [employer] CONTRAST TYPE AND DOSE: contrast/concentration: Isovue 350.00 mg/ml; Total Contrast Delivered: 98.0 ml; Total Saline Delivered: 72.0 ml RENAL FUNCTION: GFR > 60. RADIATION DOSE: CT Rad equipment meets quality standard of care and radiation dose reduction techniq ues were employed. CTDIvol: 11.1 - 15.0 mGy. DLP: 1957 mGy-cm.. LIMITATIONS: None. FINDINGS: LOWER CHEST: See separate report of the CT of the chest. LIVER: Normal size. No masses. No dilated ducts. SPLEEN: Normal size. No focal lesions. PANCREAS: No masses. No significant calcifications. No adjacent inflammation or peripancreatic fluid collections. Pancreatic duct not dilated. GALLBLADDER: No identified stones by CT criteria. No inflammatory changes to suggest cholecystitis. ADRENAL GLANDS: No significant masses or asymmetry. RIGHT KIDNEY AND URETER: No solid masses. No significant calcifications. No hydronephrosis or hyd roureter. LEFT KIDNEY AND URETER: No solid masses. No significant calcifications. No hydronephrosis or hydr oureter. AORTA AND VESSELS: No aneurysm. No dissection. Renal arteries, SMA, celiac without stenosis. RETROPERITONEUM: No retroperitoneal adenopathy, hemorrhage or masses. BOWEL AND PERITONEAL CAVITY: Subtotal colectomy. Right lower quadrant ostomy. No adenopathy, ascite s or free air. APPENDIX: Surgically absent. PELVIS: No mass. No free fluid. Normal bladder. ABDOMINAL WALL: Postsurgical changes. BONES: No significant or acute findings. OTHER: No other significant finding. IMPRESSION: No evidence of metastatic disease. TECHNICAL DOCUMENTATION: JOB ID: [id number] Quality ID # 436: Final reports with documentation of one or more dose reduction techniques (e.g., Au tomated exposure control, adjustment of the mA and/or kV according to patient size, use of iterative reconstruction technique) 2010 [employer]- All Rights Reserved Reading location - IP/workstation name: [facility]
== END ==
LOC: RAD 08:34
PROVIDERS: ATTEND Internal Medicine
DX: C18.7 Malignant neoplasm of sigmoid colon (principal)
CPT/HCPCS: 71260; 74177

== ENCOUNTER → 2019-03-07 | Outpatient (CLI) | payer OTHER ==
--- NOTE | 2019-03-07 12:02 | RADIOLOGY REPORT (SQ) ---
EXAM DESCRIPTION: BARIUM ENEMA COMPLETED DATE/TIME: 03/07/2019 10:51 am REASON FOR STUDY: COLON CA (C18.9), S/P COLON RESECTION (Z90.49) C18.9 MALIGNANT NEOPLASM OF COLON, UNSPECIFIED Z90.49 ACQUIRED ABSENCE OF OTHER SPECIFIED PARTS OF DIGESTIV COMPARISON: CT abdomen and pelvis 01/30/2019 FLUOROSCOPY TIME: 4.3 minutes 15 digital fluoroscopic images saved to PACS. TECHNIQUE: Following retrograde filling of the colon with half strength Gastrografin, fluoroscopic s pot and overhead imaging of the colon was obtained and saved to PACS. LIMITATIONS: None. FINDINGS: Pharmacy Data Analyst KUB demonstrates a right lower quadrant loop ileostomy prosthesis, clips in the righ t pelvis post tubal ligation, clips in the left retroperitoneum post partial sigmoid colectomy. Norm al bowel gas pattern. Half strength Gastrografin was instilled per rectum. Patient had difficulty maintaining the contrast per rectum. There is a row of anastomotic evelia at the sigmoid partial colectomy anastomosis. Th ere is mild narrowing of the colon at the anastomotic evelia without a definite fixed stricture. Remainder of retrograde filling of the colon demonstrates diffusely small caliber of colon without an nular constricting lesions. No reflux of contrast into the appendix or distal ileum. IMPRESSION: Post sigmoid colectomy with mild narrowing at the colonic anastomosis. There is also di ffuse decreased caliber of the colon lumen, post diverting ileostomy. COMMENT: Quality ID 145: Final reports for procedures using fluoroscopy that document radiation exp osure indices, or exposure time and number of fluorographic images (if radiation exposure indices are not available) TECHNICAL DOCUMENTATION: JOB ID: [id number] [employer]- All Rights Reserved Reading location - IP/workstation name: [facility]
== END ==
LOC: RAD 09:41
PROVIDERS: ATTEND Surgery
DX: C18.9 Malignant neoplasm of colon, unspecified (principal); Z90.49 Acquired absence of other specified parts of digestive tract
CPT/HCPCS: 74270

== ENCOUNTER → 2019-03-28 | Outpatient (CLI) | payer OTHER ==
--- NOTE | 2019-03-28 11:22 | RADIOLOGY REPORT (SQ) ---
EXAM DESCRIPTION: CT SOFT TISSUE NECK WITH COMPLETED DATE/TIME: 03/28/2019 8:32 am REASON FOR STUDY: MALIGNANT NEOPLASM OF SIGMOID COLON (C18.7), LOCALIZED SWELLING, MASS LUM C18.7 MALIGNANT NEOPLASM OF SIGMOID COLON R22.1 LOCALIZED SWELLING, MASS AND LUMP, NECK COMPARISON: Two-view chest 03/26/2019 CT chest 02/08/2019 TECHNIQUE: Post IV contrasted scanning from skull base through lung apices with review of bone, soft tissue and lung windows. Reconstructed coronal and sagittal MPR images reviewed. All images stored on PACS. All CT scanners at this facility use dose modulation, iterative reconstruction, and/or weight based d osing when appropriate to reduce radiation dose to as low as reasonably achievable (ALARA). [facility]: Dose Right [facility]: CareDose [facility]: Dose Right [facility]: Teradose 4D [facility]: [email or web address] CONTRAST TYPE AND DOSE: contrast/concentration: Isovue 350.00 mg/ml; Total Contrast Delivered: 75.0 ml; Total Saline Delivered: 55.0 ml RENAL FUNCTION: Creatinine 1.0 RADIATION DOSE: 21.4 mGy . LIMITATIONS: None. FINDINGS: SKULL BASE: Intact. MAJOR SALIVARY GLANDS: No solid or cystic masses. No inflammatory changes. LYMPHADENOPATHY: No adenopathy. Normal size bilateral jugulodigastric lymph nodes are present less t [place] 7 mm short. Normal size submandibular triangle lymph nodes are present less than 5 mm short. MUCOSAL MASSES OR ASYMMETRY: No mucosal masses or asymmetry. LARYNX/CORDS: No abnormal findings. VASCULAR STRUCTURES: The major vessels are patent. LUNG APICES: Clear. BONES: Very mild degenerative disc changes at C5-6 and C6-7 without high-grade central or foraminal s tenosis THYROID: Normal size. No masses. PARANASAL SINUSES: Clear. OTHER: No other significant finding. IMPRESSION: NO SIGNIFICANT FINDING IN THE SOFT TISSUES OF THE NECK. TECHNICAL DOCUMENTATION: JOB ID: [id number] Quality ID # 436: Final reports with documentation of one or more dose reduction techniques (e.g., Au tomated exposure control, adjustment of the mA and/or kV according to patient size, use of iterative reconstruction technique) 2010 [employer]- All Rights Reserved Reading location - IP/workstation name: [email or web address]
== END ==
LOC: RAD 07:58
PROVIDERS: ATTEND Internal Medicine
DX: C18.7 Malignant neoplasm of sigmoid colon (principal); R22.1 Localized swelling, mass and lump, neck
CPT/HCPCS: 70491; 82565

== ENCOUNTER 2019-04-02 06:46 | Inpatient (IN) | payer OTHER ==
--- NOTE | 2019-03-26 11:59 | RADIOLOGY REPORT (SQ) ---
EXAM DESCRIPTION: CHEST PA/LATERAL COMPLETED DATE/TIME: 03/26/2019 11:47 am REASON FOR STUDY: COUGH COMPARISON: 12/28/2018 EXAM PARAMETERS: NUMBER OF VIEWS: two views TECHNIQUE: Digital Frontal and Lateral radiographic views of the chest acquired. RADIATION DOSE: NA LIMITATIONS: none FINDINGS: LUNGS AND PLEURA: No opacities, masses or pneumothorax. No pleural effusion. MEDIASTINUM AND HILAR STRUCTURES: No masses or contour abnormalities. HEART AND VASCULAR STRUCTURES: Heart normal size. No evidence for failure. BONES: No acute findings. HARDWARE: None in the chest. OTHER: No other significant finding. IMPRESSION: NO SIGNIFICANT RADIOGRAPHIC FINDING IN THE CHEST. TECHNICAL DOCUMENTATION: JOB ID: [id number] [employer]- All Rights Reserved Reading location - IP/workstation name: [email or web address]
[2019-03-26 12:04] LABS: HEMOGLOBIN 12.1 g/dL (12.0-15.5); MEAN CORPUSCULAR HEMOGLOBIN 30.5 pg (27.0-33.4); MEAN CORPUSCULAR HGB CONC 34.7 g/dL (32.0-36.0); MEAN CORPUSCULAR VOLUME 88 fl (80-97); PLATELET COUNT 243 10^3/uL (150-450); RED BLOOD COUNT 3.98 10^6/uL (3.72-5.28); RED CELL DISTRIBUTION WIDTH 14.6 % (11.5-14.0); WHITE BLOOD COUNT 10.1 10^3/uL (4.0-10.5)
[2019-03-26 12:31] LABS: ANION GAP 9 (5-19); BLOOD UREA NITROGEN 19 mg/dL (7-20); CALCIUM 9.4 mg/dL (8.4-10.2); CARBON DIOXIDE 29 mmol/L (22-30); CHLORIDE 103 mmol/L (98-107); GLUCOSE 82 mg/dL (75-110); POTASSIUM 4.6 mmol/L (3.6-5.0)
--- NOTE | 2019-03-26 12:42 | EKG REPORT ---
SEVERITY:- ABNORMAL ECG - SINUS RHYTHM LEFT VENTRICULAR HYPERTROPHY : Confirmed by: Vinicius Mccollum MD 26-Mar-2019 12:41:16
[~2019-04-02 06:46] MED LIST changes: +ACETAMINOPHEN 325 MG TABLET PO PRN; +PREGABALIN 50 MG CAPSULE PO PRN; -SCOPOLAMINE HYDROBROMIDE 1.5 MG PATCH.TD72 TD PRN
[2019-04-02] MEDS ORDERED: ACETAMINOPHEN 325 MG TABLET ONE (07:23)
[2019-04-02] MEDS ORDERED: PREGABALIN 50 MG CAPSULE ONE (07:24)
[2019-04-02] MEDS ORDERED: SCOPOLAMINE HYDROBROMIDE 1.5 MG PATCH.TD72 ONE (07:24)
[2019-04-02] MEDS ORDERED: SCOPOLAMINE HYDROBROMIDE 1.5 MG PATCH.TD72 TD PRN (07:26)
[2019-04-02] MEDS ORDERED: BUPIVACAINE HCL 0.25 % INJ/PF (2.5 MG/1 ML) 30 ML VIAL ONE (07:33)
[2019-04-02] MEDS ORDERED: LIDOCAINE 1% INJ-PF (10 MG/ML) 30 ML SDV ONE (07:33)
[2019-04-02] MEDS ORDERED: METOCLOPRAMIDE HCL INJ/PF 10 MG/2 ML SDV ONE (08:20)
[2019-04-02] MEDS ORDERED: FAMOTIDINE INJ/PF 20 MG/2 ML SDV IV ONE ×2 (08:20→09:00)
[2019-04-02] MEDS ORDERED: DIPHENHYDRAMINE HCL 50 MG/ML VIAL ONE (08:20)
[2019-04-02] MEDS ORDERED: RINGERS SOLUTION,LACTATED 1,000 ML IV PRN (08:54)
[2019-04-02] MEDS ORDERED: RINGERS SOLUTION,LACTATED 500 ML IV PRN (08:54)
[2019-04-02] MEDS ORDERED: DIPHENHYDRAMINE HCL 50 MG/ML VIAL IV ONE (09:00)
[2019-04-02] MEDS ORDERED: METOCLOPRAMIDE HCL INJ/PF 10 MG/2 ML SDV IV ONE (09:00)
[2019-04-02] MEDS ORDERED: FENTANYL CITRATE INJ/PF 250 MCG/5 ML AMPULE ONE (09:58)
[2019-04-02] MEDS ORDERED: PROPOFOL INJ 200 MG/20 ML VIAL IV ONE (09:58)
[2019-04-02] MEDS ORDERED: MIDAZOLAM 2 MG/2 ML INJ ONE (09:58)
[2019-04-02] MEDS ORDERED: HYDROMORPHONE HCL INJ/PF 2 MG/ML AMPULE ONE (10:34)
[2019-04-02] MEDS ORDERED: DIPHENHYDRAMINE HCL 50 MG/ML VIAL IV PRN (10:58)
[2019-04-02] MEDS ORDERED: FENTANYL CITRATE INJ/PF 100 MCG/2 ML AMPUL IV PRN ×3 (10:58)
[2019-04-02] MEDS ORDERED: PROMETHAZINE HCL INJ 25 MG/1 ML VIAL IV PRN ×2 (10:58)
[2019-04-02] MEDS ORDERED: MEPERIDINE HCL/PF INJ 25 MG/1 ML DISP.SYRIN IV PRN (10:58)
[2019-04-02] MEDS ORDERED: OXYCODONE-ACETAMINOPHEN 5-325 MG TABLET PO PRN ×2 (10:58)
[2019-04-02] MEDS ORDERED: ONDANSETRON HCL INJ/PF 4 MG/2 ML SDV ONE (12:47)
[2019-04-02] MEDS ORDERED: NEOSTIGMINE METHYLSULFATE 10 MG/10 ML VIAL ONE (12:47)
[2019-04-02] MEDS ORDERED: GLYCOPYRROLATE 1 MG/5 ML VIAL ONE (12:47)
[2019-04-02] MEDS ORDERED: LIDOCAINE 2% INJ-PF (20 MG/ML) 2 ML AMPUL ONE (12:47)
[2019-04-02] MEDS ORDERED: DEXAMETHASONE SOD PHOSPHATE INJ 4 MG/1 ML VIAL ONE (12:47)
[2019-04-02] MEDS ORDERED: ROCURONIUM BROMIDE INJ 50 MG/5 ML VIAL IV ONE (12:47)
[2019-04-02] MEDS ORDERED: SUGAMMADEX SODIUM 200 MG/2 ML SDV IV ONE (12:50)
[2019-04-02] MEDS ORDERED: MORPHINE SULFATE 10 MG/ML INJ IV PRN (12:54)
[2019-04-02] MEDS ORDERED: PROMETHAZINE HCL INJ 25 MG/1 ML VIAL ONE (13:26)
[2019-04-02] MEDS ORDERED: KETOROLAC TROMETHAMINE INJ/PF 30 MG/1 ML SDV IV SCH (14:00)
--- NOTE | 2019-04-02 15:54 | RADIOLOGY REPORT (SQ) ---
EXAM DESCRIPTION: FLUORO/CV PLACEMENT COMPLETED DATE/TIME: 04/02/2019 3:29 pm REASON FOR STUDY: PORTACATH PLCMT LEFT SIDE ASST WITH FLUORO IN OR Z93.2 ILEOSTOMY STATUS COMPARISON: 03/26/2019 FLUOROSCOPY TIME: 0.3 minutes 4 images saved to PACS. TECHNIQUE: Intra-operative images acquired during surgical procedure to evaluate progress. NUMBER OF IMAGES: 4 LIMITATIONS: None. FINDINGS: Limited fluoroscopic images obtained during placement of a left IJ based chest port. Plea se see operative report for detailed description. IMPRESSION: IMAGE(S) OBTAINED DURING PROCEDURE. COMMENT: Quality ID 145: Final reports for procedures using fluoroscopy that document radiation exp osure indices, or exposure time and number of fluorographic images (if radiation exposure indices are not available) Please consult full operative report of the attending physician for description of the procedure. TECHNICAL DOCUMENTATION: JOB ID: [id number] [employer]- All Rights Reserved Reading location - IP/workstation name: [email or web address]
[2019-04-02] MEDS: ONDANSETRON HCL INJ/PF 4 MG/2 ML SDV IV PRN ×2 (16:34→21:41)
[2019-04-02] MEDS ORDERED: KETOROLAC TROMETHAMINE INJ/PF 30 MG/1 ML SDV ONE (19:28)
[2019-04-02] MEDS: KETOROLAC TROMETHAMINE INJ/PF 30 MG/1 ML SDV IV SCH (20:01)
[2019-04-02] MEDS: CEFOXITIN SODIUM 2 GM in DEXTROSE 5%-WATER 100 ML IV SCH (20:01)
[2019-04-02] MEDS: FAMOTIDINE INJ/PF 20 MG/2 ML SDV IV SCH (21:41)
[2019-04-03] MEDS: KETOROLAC TROMETHAMINE INJ/PF 30 MG/1 ML SDV IV SCH ×3 (02:53→17:15)
[2019-04-03] MEDS: CEFOXITIN SODIUM 2 GM in DEXTROSE 5%-WATER 100 ML IV SCH (02:53)
[2019-04-03 06:51] LABS: ANION GAP 9 (5-19); BLOOD UREA NITROGEN 15 mg/dL (7-20); CALCIUM 8.7 mg/dL (8.4-10.2); CARBON DIOXIDE 26 mmol/L (22-30); CHLORIDE 102 mmol/L (98-107); GLUCOSE 111 mg/dL (75-110); POTASSIUM 4.2 mmol/L (3.6-5.0)
[2019-04-03] MEDS: ONDANSETRON HCL INJ/PF 4 MG/2 ML SDV IV PRN (07:43)
[2019-04-03] MEDS: 1/2 NORMAL SALINE 1,000 ML IV PRN (07:44)
--- NOTE | 2019-04-03 09:21 | PDOC PROGRESS REPORT ---
Subjective Progress Note for:: 04/03/19 Reason For Visit: COLON CANCER, S/P ILEOSTOMY REVERAL Physical Exam Vital Signs: Temp Pulse Resp BP Pulse Ox 99.2 F 70 17 147/58 H 99 04/03/19 07:27 04/03/19 07:27 04/03/19 07:27 04/03/19 07:27 04/03/19 07:27 Intake & Output 04/02/19 04/03/19 04/04/19 06:59 06:59 06:59 Intake Total 3430 Output Total 1050 Balance 2380 Weight 90.7 kg Results Laboratory Results: 03/26/19 11:01 04/03/19 06:04 04/03/19 06:04 Sodium 137.3 Potassium 4.2 Chloride 102 Carbon Dioxide 26 Anion Gap 9 BUN 15 Creatinine 0.89 Est GFR ( Amer) > 60 Est GFR (Non-Af Amer) > 60 Glucose 111 H Calcium 8.7 Impressions: Chest X-Ray 03/26/19 00:00 IMPRESSION: NO SIGNIFICANT RADIOGRAPHIC FINDING IN THE CHEST. Guidance Fluoroscopy 04/02/19 00:00 IMPRESSION: IMAGE(S) OBTAINED DURING PROCEDURE. Assessment & Plan - Diagnosis (1) Colon neoplasm Is this a current diagnosis for this admission?: Yes - Plan Summary Plan Summary: This is a 53-year-old female with colon cancer, metastatic to the intra-a bdominal lymph nodes. The patient is status post ileostomy reversal and Mediport placement. She is doing well today. She denies any bowel function at present. She also denies nausea or vomiting. Aggressive pulmonary toilet. Out of bed. Continue current pain medication regimen. Continue full liquids for now. Continue DVT prophylaxis.
[2019-04-03] MEDS: ENOXAPARIN SODIUM INJ 40 MG/0.4 ML DISP.SYRIN SUBCUT SCH (10:49)
[2019-04-03] MEDS: FAMOTIDINE INJ/PF 20 MG/2 ML SDV IV SCH ×2 (10:49→21:41)
[2019-04-03] MEDS: OXYCODONE-ACETAMINOPHEN 5-325 MG TABLET PO PRN (14:31)
[2019-04-04] MEDS: KETOROLAC TROMETHAMINE INJ/PF 30 MG/1 ML SDV IV SCH ×3 (01:43→17:45)
[2019-04-04] MEDS: ONDANSETRON HCL INJ/PF 4 MG/2 ML SDV IV PRN ×2 (01:47→21:22)
[2019-04-04] MEDS: 1/2 NORMAL SALINE 1,000 ML IV PRN (06:37)
[2019-04-04] MEDS: OXYCODONE-ACETAMINOPHEN 5-325 MG TABLET PO PRN ×2 (08:20→21:22)
[2019-04-04] MEDS: FAMOTIDINE INJ/PF 20 MG/2 ML SDV IV SCH ×2 (09:57→21:22)
[2019-04-04] MEDS: ENOXAPARIN SODIUM INJ 40 MG/0.4 ML DISP.SYRIN SUBCUT SCH (09:58)
--- NOTE | 2019-04-04 15:10 | PDOC PROGRESS REPORT ---
Subjective Progress Note for:: 04/04/19 Reason For Visit: COLON CANCER, S/P ILEOSTOMY REVERAL Physical Exam Vital Signs: Temp Pulse Resp BP Pulse Ox 98.9 F 77 16 133/57 H 95 04/04/19 11:53 04/04/19 11:53 04/04/19 11:53 04/04/19 11:53 04/04/19 11:53 Intake & Output 04/03/19 04/04/19 04/05/19 06:59 06:59 06:59 Intake Total 3430 1810 Output Total 1050 1500 Balance 2380 310 Weight 90.7 kg 90.7 kg Results Laboratory Results: 03/26/19 11:01 04/03/19 06:04 Impressions: Chest X-Ray 03/26/19 00:00 IMPRESSION: NO SIGNIFICANT RADIOGRAPHIC FINDING IN THE CHEST. Guidance Fluoroscopy 04/02/19 00:00 IMPRESSION: IMAGE(S) OBTAINED DURING PROCEDURE. Assessment & Plan - Diagnosis (1) Colon neoplasm Is this a current diagnosis for this admission?: Yes - Plan Summary Plan Summary: This is a 53-year-old female status post reversal of right lower quadrant diverting loop ileostomy. She is doing very well. She reports feeling "rumbling in her stomach". The patient denies any flatus at present. She also denies nausea or vomiting. Continue with full liquids for now. Awaiting bowel function. Once bowel function resumes, she may be discharged home. DVT prophylaxis. Ambulate. Aggressive pulmonary toilet.
--- NOTE | 2019-04-04 15:39 | Operative Report ---
Nonrecallable Operative Report DATE OF SURGERY: 04/02/19 PREOPERATIVE DIAGNOSIS: 1. Colon cancer. 2. Unwanted ileostomy. 3. Phlebosclerosis. POSTOPERATIVE DIAGNOSIS: Same as above. OPERATION: 1. Ultrasound-guided central venous puncture with photodocumentation. 2. Left internal jugular vein Mediport placement. 3. Reversal of right lower quadrant diverting loop ileostomy. 4. Closure of parastomal hernia with implantation of Scotrun Bio-A 9 x 15 cm hernia mesh to buttress the right lower quadrant fascial repair SURGEON: ALANA NIELSON ANESTHESIA: GA TISSUE REMOVED OR ALTERED: None COMPLICATIONS: none apparent ESTIMATED BLOOD LOSS: minimal PROCEDURE: Drains/implants: #1 left internal jugular vein Mediport. 2. 9 x 15 cm Scotrun bio a hernia mesh. Procedure in detail: After informed consent was obtained, the patient was brought to the operating room and laid in the supine position. The area of the neck and chest were prepped and draped in a normal sterile fashion. Trendelenburg position was assumed. An ultrasound was used to identify the left internal jugular vein. It was compressible with normal flow. Under direct ultrasonic guidance, the supplied access needle was then used to cannulate the left internal jugular vein. Dark venous, nonpulsatile blood was returned in the syringe. The wire was inserted into the vein easily. The wire was confirmed to be within the lumen of the vein using the ultrasound device and fluoroscopy. Photo documentation is present on the chart. Next, the Mediport hub pocket was created with a 15 blade scalpel on the chest wall. The catheter was tunneled from the Mediport hub site to the needle insertion site. Next, the dilator and breakaway sheath were inserted over the wire. This was done under direct fluoroscopic guidance. The wire and dilator were then removed as one piece, leaving the sheath within the SVC. The catheter was inserted into the sheath. The sheath was cracked and pulled away, leaving the catheter within the SVC. The catheter was then pulled back to an appropriate level, trimmed, and the Mediport hub was attached. The hub was buried in the pocket. The hub was sutured to the chest wall using 3-0 Vicryl suture in simple interrupted fashion. The subcutaneous tissues were then closed using 3-0 Vicryl suture. The overl ariane skin was closed using 4-0 Vicryl Rapide suture in subcuticular fashion. The Mediport hub was then accessed and flushed with heparinized saline. Dressings were placed, and this portion of the procedure was concluded. Attention was then turned to reversal of the ileostomy. The drapes were taken down. The right lower quadrant ostomy appliance was removed. The loop ileostomy was then closed using 0 silk suture in running, locking fashion. Next the abdomen was prepped and draped in a normal sterile fashion. An incision was created around the closed ileostomy with a 15 blade scalpel. Dissection was carried through the subcutaneous tissues using sharp dissection, blunt dissection, and electrocautery. The afferent and efferent loops of the ileostomy were freed down to the fascia, and the parastomal hernia sac was visualized. The small bowel was elevated, the antimesenteric portions were apposed to one another, and a side to side stapled anastomosis was created with a SALONI-75 stapler. The resulting defect was closed using the SALONI-75 stapler. The anastomosis was tested. It was found to be free of any leakage of air or liquid. 2 crotch stitches of 3-0 Vicryl were placed in the anastomosis. The anastomosis was then returned to the abdominal cavity. Next closure was undertaken. A 9 x 15 cm Scotrun Bio-A hernia mesh was chosen to buttress the closure. The mesh was placed into the abdominal cavity. It was sutured to the fascia using #1 Vicryl suture in mattress fashion in 4 quadrants. After this was completed, the posterior layer was closed using running #1 Vicryl suture. The overlying anterior fascia was also closed. This was done using #1 PDS suture in simple running fashion. A Xeroform gauze was placed into the wound, and the skin was loosely approximated over the Xeroform gauze using skin evelia. Once this was completed, a dressing was placed. The procedure at this time was concluded. All sponge, instrument, and needle counts were correct x2. Condition: Stable.
[2019-04-05] MEDS: KETOROLAC TROMETHAMINE INJ/PF 30 MG/1 ML SDV IV SCH ×3 (02:00→17:52)
[2019-04-05] MEDS: ENOXAPARIN SODIUM INJ 40 MG/0.4 ML DISP.SYRIN SUBCUT SCH (10:03)
[2019-04-05] MEDS: FAMOTIDINE INJ/PF 20 MG/2 ML SDV IV SCH (10:10)
[2019-04-05] MEDS: ONDANSETRON HCL INJ/PF 4 MG/2 ML SDV IV PRN (10:10)
[2019-04-05] MEDS: OXYCODONE-ACETAMINOPHEN 5-325 MG TABLET PO PRN (10:10)
[2019-04-05] MEDS: 1/2 NORMAL SALINE 1,000 ML IV PRN (10:16)
--- NOTE | 2019-04-05 18:29 | PDOC DISCHARGE SUMMARY ---
General - Admit/Disc Date/PCP Admission Date/Primary Care Provider: 04/02/19 12:54 CAIT JOHNSTON PA-C Discharge Date: 04/05/19 - Discharge Diagnosis (1) Colon neoplasm Is this a current diagnosis for this admission?: Yes - Additional Information Discharge Diet: As Tolerated Discharge Activity: No Lifting Over 10 Pounds Home Medications: Celecoxib 100 mg PO Q12 04/02/19 Famotidine [Acid Controller] 20 mg PO BID 04/02/19 Fenofibrate Nanocrystallized [Tricor 145 mg Tablet] 145 mg PO QHS 04/02/19 Multivitamin [Multiple Vitamins] 1 tab PO DAILY 04/02/19 Valacyclovir HCl [Valtrex 500 mg Tablet] 500 mg PO DAILYP PRN 04/02/19 History of Present Illness History of Present Illness: LUISA NEWTON is a 53 year old female who is several months status post left hemicolectomy, with partial rectal resection, primary anastomosis, and diverting loop ileostomy. The patient presented for reversal of her ileostomy and placement of a Mediport. Patient was taken to surgery, and her operation went very well. She was taken to the floor afterward in stable condition. Hospital Course Hospital Course: Patient was taken to the floor in stable condition. She was began on a full liquid diet, which she tolerated very well. On postoperative day #2 she began having liquid bowel movements. On postoperative day #3 she was tolerating a regular diet, ambulating, and it was felt that she had reached maximal hospital benefit and was fit for discharge. Physical Exam Vital Signs: Temp Pulse Resp BP Pulse Ox 98.4 F 90 17 121/50 L 98 04/05/19 17:55 04/05/19 17:55 04/05/19 17:55 04/05/19 17:55 04/05/19 17:55 Intake & Output 04/04/19 04/05/19 04/06/19 06:59 06:59 06:59 Intake Total 1810 1450 Output Total 1500 1500 Balance 310 -50 Weight 90.7 kg 92.5 kg Results Laboratory Results: 03/26/19 11:01 04/03/19 06:04 Impressions: Chest X-Ray 03/26/19 00:00 IMPRESSION: NO SIGNIFICANT RADIOGRAPHIC FINDING IN THE CHEST. Guidance Fluoroscopy 04/02/19 00:00 IMPRESSION: IMAGE(S) OBTAINED DURING PROCEDURE. Qualifiers - * PATIENT BEING DISCHARGED WITH ANY OF THE FOLLOWING DIAGNOSIS: No Acute Heart Failure - Is this a Heart Failure Patient?: No Plan Discharge Plan: Discharge home. Diet as tolerated. Activity: No lifting or than 10 pounds x 6 weeks. Follow-up with me in 7 to 10 days. [place] 10/325 mg p.o. every 6 hours as needed for pain. Ibuprofen [id number], as needed for breakthrough pain. Okay to shower.
[2019-04-05 19:22] VITALS: BP 150/63
== END 2019-04-05 19:40 | disposition home or self-care (01) | DRG 330 ==
LOC: INOR 06:46 → INTOOBSV 06:46 → EDSTATUS 09:00 → OBSVTOIN 12:54 → 4N 14:26 → 4W 04-05 15:11 → 4N 04-05 15:12
PROVIDERS: ADMIT Surgery; ATTEND Surgery
PROC: 0JH60XZ Insertion of Tunneled Vascular Access Device into Chest Subcutaneous Tissue and Fascia, Open Approach (ICD-10-PCS; 2019-04-02)
PROC: 0DQB0ZZ Repair Ileum, Open Approach (ICD-10-PCS; principal; 2019-04-02 09:00)
PROC: 02HV33Z Insertion of Infusion Device into Superior Vena Cava, Percutaneous Approach (ICD-10-PCS; 2019-04-02 09:00)
DX: Z43.2 Encounter for attention to ileostomy (principal); C18.9 Malignant neoplasm of colon, unspecified; C77.2 Secondary and unspecified malignant neoplasm of intra-abdominal lymph nodes; E78.00 Pure hypercholesterolemia, unspecified; F41.9 Anxiety disorder, unspecified; E66.9 Obesity, unspecified; E04.1 Nontoxic single thyroid nodule; I87.8 Other specified disorders of veins; Z68.36 Body mass index [BMI] 36.0-36.9, adult; Z86.19 Personal history of other infectious and parasitic diseases; Z90.49 Acquired absence of other specified parts of digestive tract; Z88.8 Allergy status to other drugs, medicaments and biological substances; Z87.891 Personal history of nicotine dependence; Z80.49 Family history of malignant neoplasm of other genital organs; Z80.8 Family history of malignant neoplasm of other organs or systems; Z83.42 Family history of familial hypercholesterolemia
CPT/HCPCS: 36415; 71046; 77001; 790; 80048; 85027; 93005; 93010; C1781; C1788; J0694; J1100; J1170; J1200; J1642; J1650; J1741; J1885; J2250; J2270; J2405; J2550; J2704; J2710; J2765; J3010; J3490; J7050; J7060; S0028

== ENCOUNTER → 2019-04-17 | Outpatient (CLI) | payer OTHER ==
--- NOTE | 2019-04-17 12:28 | RADIOLOGY REPORT (SQ) ---
EXAM DESCRIPTION: U/S THYROID/SFT TISS HD NECK COMPLETED DATE/TIME: 04/17/2019 12:08 pm REASON FOR STUDY: (R22.1)LOCALIZED SWELLING, MASS AND LUMP, NECK;(C18.7)MALIGNANT NEOPLASM OF C18.7 MALIGNANT NEOPLASM OF SIGMOID COLON R22.1 LOCALIZED SWELLING, MASS AND LUMP, NECK COMPARISON: CT neck dated 03/28/2019 TECHNIQUE: Dynamic and static herring-scale images acquired of the thyroid gland. Selected additional c olor/power Doppler images recorded. All images stored to PACS. LIMITATIONS: None. FINDINGS: RIGHT LOBE: The right lobe measures 4.6 cm in greatest dimensions. The gland is homogeneo us in echotexture. Multiple small hypoechoic nodules. None are greater than 3 mm in greatest diamet er. LEFT LOBE: The left lobe measures 4.0 cm in greatest dimensions. Homogeneous echotexture. Small hyp oechoic nodules are present. The largest measures 8.1 x 8.0 x 4.6 cm. ISTHMUS: 3.4 mm in greatest diameter. Homogeneous echotexture. There is a 5.8 x 8.3 x 4.3 cm hypoec hoic nodule. The lesion is greater in width and height. Margins are well defined. OTHER: There are small lymph nodes noted in the right lateral aspect of the neck which are palpable b y the patient. The largest measures 7.6 x 8.3 x 4.3 mm. IMPRESSION: 1. Benign-appearing nodules in the right lobe of the thyroid gland. 2. 5.8 x 8.3 x 4.3 cm lesion in the left aspect of the isthmus. This is TI RAD 4 lesion. Based on size no additional follow-up is needed. 3. 8.1 x 8.0 x 4.6 cm hypoechoic solid nodule in the left lobe of the thyroid gland. This represent s a TI RAD 4 lesion as well. Based on size no additional follow-up is needed. TECHNICAL DOCUMENTATION: JOB ID: [id number] [employer]- All Rights Reserved Reading location - IP/workstation name: [email or web address]
== END ==
LOC: RAD 10:16
PROVIDERS: ATTEND Internal Medicine
DX: C18.7 Malignant neoplasm of sigmoid colon (principal); E04.1 Nontoxic single thyroid nodule
CPT/HCPCS: 76536

== ENCOUNTER → 2019-12-04 | Outpatient (CLI) | payer OTHER ==
--- NOTE | 2019-12-04 09:15 | RADIOLOGY REPORT (SQ) ---
EXAM DESCRIPTION: CT CHEST WITH; CT ABD/PELVIS WITH IV ONLY IMAGES COMPLETED DATE/TIME: 12/04/2019 8:50 am REASON FOR STUDY: COLON CA (C18.7) C18.7 MALIGNANT NEOPLASM OF SIGMOID COLON CONTRAST TYPE AND DOSE: contrast/concentration: Isovue 350.00 mg/ml; Total Contrast Delivered: 100.0 ml; Total Saline Delivered: 72.0 ml RENAL FUNCTION: Creatinine 0.6 COMPARISON: None. TECHNIQUE: CT scan of the chest performed using helical scanning technique with dynamic intravenous contrast injection. Images reviewed with lung, soft tissue and bone windows. Reconstructed coronal a nd sagittal MPR images reviewed. All images stored on PACS. All CT scanners at this facility use dose modulation, iterative reconstruction, and/or weight based d osing when appropriate to reduce radiation dose to as low as reasonably achievable (ALARA). [facility]: Dose Right [facility]: CareDose [facility]: Dose Right [facility]: Teradose 4D [facility]: SBA Materials RADIATION DOSE: CT Rad equipment meets quality standard of care and radiation dose reduction techniq ues were employed. CTDIvol: 10.0 - 14.5 mGy. DLP: 1900 mGy-cm. . LIMITATIONS: None. FINDINGS: AXILLAE: No adenopathy. CHEST WALL: No masses. No subcutaneous air. LUNGS: 2.5 mm nodule in the anterior right upper lobe best demonstrated on series 6, image 40. This is stable in size and configuration and nonspecific. Minimal left basilar atelectasis. PLEURA: No effusions. No calcifications. THYROID: No masses or significant asymmetry. HILAR AND MEDIASTINAL STRUCTURES: No identified masses or abnormal nodes. AORTA AND GREAT VESSELS: No aneurysm. No dissection. PULMONARY ARTERIES: No identified pulmonary emboli. Study not optimized for the pulmonary arteries. HEART: No pericardial effusion. HARDWARE AND LIFELINES: None. BONES: No significant finding. OTHER: No other significant finding. IMPRESSION: 2.5 mm nodule in the anterior right upper lobe stable from prior study. This is nonspec ific. Continued CT surveillance is recommended. COMPARISON: None. RADIATION DOSE: CT Rad equipment meets quality standard of care and radiation dose reduction techniq ues were employed. CTDIvol: 10.0 - 14.5 mGy. DLP: 1900 mGy-cm. mGy. TECHNIQUE: CT scan of the abdomen and pelvis performed with intravenous and oral contrast using kareem richard scanning technique with dynamic intravenous contrast injection. Images reviewed with lung, soft tissue and bone windows. Reconstructed coronal and sagittal MPR images reviewed. Delayed images for evaluation of the urinary system also acquired and evaluated. All images stored on PACS. All CT scanners at this facility use dose modulation, iterative reconstruction, and/or weight based d osing when appropriate to reduce radiation dose to as low as reasonably achievable (ALARA). [facility]: Dose Right [facility]: SureCare [facility]: Dose Right [facility]: Teradose 4D [facility]: SBA Materials FINDINGS: LIVER: Decreased attenuation throughout the liver consistent with fatty infiltration. Hep atomegaly. The liver measures 23.5 cm in cranial caudal dimensions. SPLEEN: Splenomegaly. Focal approximate 1 cm lesion in the posterior inferior aspect of the spleen i s unchanged. This could represent small cyst. PANCREAS: No masses. No significant calcifications. No adjacent inflammation or peripancreatic flui d collections. Pancreatic duct not dilated. GALLBLADDER: No identified stones by CT criteria. No inflammatory changes to suggest cholecystitis. ADRENAL GLANDS: No significant masses or asymmetry. RIGHT KIDNEY AND URETER: No solid masses. No significant calcifications. No hydronephrosis or hyd roureter. LEFT KIDNEY AND URETER: No solid masses. No significant calcifications. No hydronephrosis or hydr oureter. AORTA AND VESSELS: No aneurysm. No dissection. Renal arteries, SMA, celiac without stenosis. RETROPERITONEUM: No retroperitoneal adenopathy, hemorrhage or masses. LARGE AND SMALL BOWEL: Anastomotic suture line in the right lower quadrant. No obstruction. APPENDIX: Not visualized. ABDOMINAL WALL: Postsurgical changes. PERITONEAL CAVITY: No free air. No free fluid. No peritoneal implants or masses. PELVIS: No mass or free fluid. Normal bladder. BONES: No significant or acute findings. OTHER: No other significant finding. IMPRESSION: Postsurgical changes. No evidence of metastatic disease in the abdomen or pelvis. Stable hepatosplenomegaly. TECHNICAL DOCUMENTATION: JOB ID: [id number] Quality ID # [id number]: Final reports with documentation of one or more dose reduction techniques (e.g., Au tomated exposure control, adjustment of the mA and/or kV according to patient size, use of iterative reconstruction technique) 2010 [employer]- All Rights Reserved Reading location - IP/workstation name: [email or web address]
== END ==
LOC: RAD 08:22
PROVIDERS: ATTEND Internal Medicine
DX: C18.7 Malignant neoplasm of sigmoid colon (principal); R91.1 Solitary pulmonary nodule
CPT/HCPCS: 71260; 74177; 82565

== ENCOUNTER 2020-04-20 07:02 | Day surgery (SDC) | payer OTHER ==
[2020-04-20] MEDS ORDERED: PROPOFOL INJ 200 MG/20 ML VIAL IV ONE (07:41)
--- NOTE | 2020-04-20 08:50 | Operative Report ---
Operative Report DATE OF SURGERY: 04/20/20 Operative Report: The risk, benefits and alternatives of the procedure including the risk of bleeding, perforation requiring surgery have been explained to the patient in detail and informed consent has been obtained. Patient is placed in a left, lateral decubital position. Timeout was called. Propofol medication is administered. Rectal examination is done which did not reveal any masses, tears or fissures. An Olympus videoscope was introduced into the patient's rectum and carefully advanced all the way to the cecum the cecum was identified by the usual anatomical landmarks including the ileocecal valve as well as the appendiceal office. Photodocumentation is obtained. Scope was then sequentially pulled back via the various segments of the colon including the ascending colon, hepatic flexure, transverse colon, splenic flexure, descending colon and finally into the rectosigmoid portions of the colon. Retroflexion maneuver is performed. PREOPERATIVE DIAGNOSIS: Personal history of colon cancer status post resection POSTOPERATIVE DIAGNOSIS: Mild inflammation at the anastomotic site. Prep is good. Procedure performed to the moapa cecum. Internal hemorrhoids OPERATION: Colonoscopy with biopsy SURGEON: JAIRO MILTON ANESTHESIA: LMAC TISSUE REMOVED OR ALTERED: As noted above. COMPLICATIONS: None. ESTIMATED BLOOD LOSS: None. INTRAOPERATIVE FINDINGS: As noted above. PROCEDURE: Patient tolerated the procedure well. No immediate postprocedure complications are noted. Patient is discharged in good condition. Discharge date 04/20/2020. Discharge diet: Regular. Discharge activity: Regular. 2 to 3-week follow-up to discuss findings. Patient is instructed call the office or proceed to the emergency room should there be any further problems or questions. Wait on the pathology. Surveillance colonoscopy 3 years
[2020-04-20 09:36] VITALS: BP 135/69
== END 2020-04-20 09:39 | disposition home or self-care (01) ==
LOC: END 07:02
PROVIDERS: ATTEND Internal Medicine Gastroenterology
DX: Z12.11 Encounter for screening for malignant neoplasm of colon (principal); K52.9 Noninfective gastroenteritis and colitis, unspecified; Z85.038 Personal history of other malignant neoplasm of large intestine; K64.8 Other hemorrhoids; Z86.010 Personal history of colon polyps; Z90.49 Acquired absence of other specified parts of digestive tract; D57.3 Sickle-cell trait; E66.9 Obesity, unspecified; R01.1 Cardiac murmur, unspecified; Z03.818 Encounter for observation for suspected exposure to other biological agents ruled out
CPT/HCPCS: 45380; 88305 ×2; 00811; U0003; J2704; C9803; 811; 87635